=== PATIENT | female | born 1965 | race Caucasian/White ===

== ENCOUNTER 2017-12-17 18:33 | Inpatient (IN) | payer MEDICARE, SELFPAY ==
[2017-12-17 18:35] VITALS: BP 138/90; PULSE 121; RESP 20; TEMP 36.5; O2SAT 92; BMI 40.3
[2017-12-17 19:15] VITALS: O2SAT 94
--- NOTE | 2017-12-17 19:15 | EKG12_ITS ---
Test Reason : Blood Pressure : / mmHG Vent. Rate : 122 BPM Atrial Rate : 122 BPM P-R Int : 150 ms QRS Dur : 078 ms QT Int : 316 ms P-R-T Axes : 036 -08 016 degrees QTc Int : 450 ms Sinus tachycardia Low voltage QRS (precordial leads) Inferior infarct , age undetermined, cannot be excluded Poor R wave progression Abnormal ECG Confirmed by DIETER SALGADO, NO ([id number]), primer expeditor and drier BULL KENNEDY ([id number]) on 12/23/2017 3:02:43 PM Referred By: SEMAJ Confirmed By:NO GARCIAS MD
--- NOTE | 2017-12-17 19:15 | RAD_ITS ---
STUDY: X-RAY CHEST REASON FOR EXAM: Female, 52 years old. Chest pain TECHNIQUE: Frontal view of the chest COMPARISON: None. FINDINGS: The lungs are clear. There are no pleural effusions. There is no pneumothorax. The heart is normal in size. The visualized osseous structures are within normal limits. RAD/Chest 1 View (Portable) IMPRESSION: No acute thoracic pathology. Electronically Signed: Brannon Thomas, at 19:30 EDT Tel , Service support ,
[2017-12-17 19:30] VITALS: BP 141/79; PULSE 122; RESP 20; O2SAT 94
[2017-12-17 19:36] LABS: Absolute Lymphocyte Count 1.67 X10^3/ul (0.83-4.51); Absolute Neutrophil Count 13.4 X10^3/uL (2.0-7.7); Basophil# 0.03 X10^3/uL; Basophil% 0.2 % (0-1); Eosinophil# 0.26 X10^3/uL; Eosinophils% 1.6 % (0-5); Hematocrit 39.7 % (37-47); Hemoglobin 12.8 g/dl (12.0-15.0); Lymphocyte # 1.67 X10^3/ul (4.0); Lymphocyte % 10.3 % (19-41); Mean Corp Hgb Conc 32.2 g/gl (32-36); Mean Corpuscular Hgb 24.7 pg (27.0-32.0); Mean Corpuscular Volume 76.6 fL (81-99); Mean Platelet Vol. 8.3 fl (6.2-12.0); Monocyte# 0.73 X10^3/uL; Monocyte% 4.5 % (0-10); Neutrophil # 13.41 X10^3/uL (2.7-7.7); Platelet Count 351 K/mm3 (150-450); RBC Distribution Width CV 16.3 % (11.6-14.6); RBC Distribution Width SD 44.4 fl (35.1-43.9); Red Blood Count 5.18 M/mm3 (4.2-5.4); White Blood Count 16.2 K/mm3 (4.4-11.0)
[2017-12-17 19:42] LABS: POSITIVE COUNT NO; POSITIVE DIFFERENTIAL NO; POSITIVE MORPHOLOGY NO
[2017-12-17 19:54] LABS: Anion Gap 11 (5-15); BUN 14 mg/dL (7-18); BUN/Creat Ratio 12.5 RATIO (10-20); Calcium,Total 9.4 mg/dL (8.5-10.1); Chloride 97 mmol/L (98-107); Creatinine, Serum 1.12 mg/dL (0.55-1.02); EST Glomerular Filtration Rate 55 mL/min (>60); Est Glom Filt Rate - Afr Amer 66 mL/min (>60); Estimated Creatinine Clearance 51.89 ml/min; Glucose 272 mg/dL (74-106); Potassium 4.2 mmol/L (3.5-5.1); Sodium Level 130 mmol/L (136-145)
[2017-12-17 20:06] LABS: D-Dimer Quantitative (DVT/PE) 10.17 FEU/ug/m (0.27-0.49)
--- NOTE | 2017-12-17 20:07 | ED.RN ---
lab called with critical lab results. D dimer 04.21. Dr. Alba made aware. No new orders at this time. Primary nurse made aware.
--- NOTE | 2017-12-17 20:13 | CT_ITS ---
STUDY: CTA CHEST REASON FOR EXAM: Female, 52 years old. Dizziness, elevated d-dimer RADIATION DOSAGE (If Supplied By Facility): CTDIvol = ( 16.66 ) mGy, DLP = ( 636.68 ) mGycm TECHNIQUE: The examination was performed with the intravenous administration of 100 ml of Isovue 370 contrast material. Post-processing of the angiographic images was performed, with multiplanar reformation and 3D reconstruction. Individualized dose optimization techniques were used for this CT. COMPARISON: None. FINDINGS: There are filling defects of the main pulmonary artery and right and left pulmonary arteries with saddle embolus. Multiple filled defect isn't noted of the bilateral peripheral pulmonary arteries. There is compatible with significant pulmonary embolism. Normal thoracic aorta and visualized great vessels. There is no demonstrated aortic dissection. Normal heart and pericardium. Normal mediastinum. Normal hilar regions. Normal visualized trachea and bronchi. The lungs are well expanded. Normal pulmonary parenchyma. Normal pleura. Normal chest wall structures. Normal osseous structures. Small hiatal hernia. CT/CTA Chest W/WO Contrast IMPRESSION: Extensive bilateral pulmonary embolism. N.B. : The above information has been verbally conveyed by José Miguel Katz DO to Dr. Patricio Alba, Referring Physician, on 12/17/2017 22:01:34 (ET). Electronically Signed: José Miguel Katz DO at 21:51 EDT Tel [phone], Service support , N.B. : The above information has been verbally conveyed by José Miguel Katz DO to Dr. Patricio Alba, Referring Physician, on 12/17/2017 22:01:34 (ET).
[2017-12-17 20:30] VITALS: BP 138/78; PULSE 123; RESP 20; O2SAT 98
--- NOTE | 2017-12-17 22:17 | ED.VISSUMM ---
- ER Visit Summary Date of Service: 12/17/17 Chief Complaint: Dizziness and shortness of breath History of Present Illness: The patient is a 52 F history of cxx-dhavtxr-tdimxawtk diabetes and vertigo. Patient states she has had 2 dizzy spells today around 5 PM. She said the room was spinning she felt tired. She thought it was of vertigo she took to Antivert specific really made much of a difference. She said when she bent over she felt short of breath. She denies any chest pain. She denies any hemoptysis. She denies any history of DVT or PE. She denies any recent travel, surgery, mobilization. She is not on any control pills. She denies any cardiac history. Physical Examination: Well-appearing middle-age female. Vital signs are stable her pulse ox is borderline low at 92% with a heart rate of 121. She is in no distress. H EENT exam unremarkable. Neck nontender no JVD. Lungs clear to auscultation bilaterally. Heart tachycardic rate about 120s no murmur. Abdomen is soft and nontender. Normal bowel sounds no peritoneal signs. She is moving all 4 extremities. Calves are nontender without edema or cords. Neurologically she is awake and alert without focal motor deficits. Test Results: White count elevated 16,000 H&H 12 and 39. Electrolytes show sodium 130. Gap of 11 normal BUN and creatinine. Troponin is slightly elevated 0.113 d-dimer is elevated 10.1. CTA of the chest shows multiple bilateral large pulmonary emboli with saddle emboli. EKG shows a sinus tachycardia rate of 122 with a S1 every 3 and T3. Emergency Department Course and Treatment: In presents with atypical dizziness does not appear to be vertigo on exam. She also has tachycardia with borderline hypoxia. Treatment Plan: Patient's workup is consistent with acute bilateral pulmonary emboli. She will be started on p.o. Xarelto and admitted to the hospital. 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 Disposition: Admission Impression: Acute bilateral pulmonary emboli with saddle embolus This note was generated with [employer] dictation software. It may contain incorrect words, spelling, and punctuation that were not noted in review of the chart prior to signing ED Disposition - Plan for ED Patient: Chief Complaint: Dizziness Referrals: Michele Kaur MD [Primary Care Provider] -
--- NOTE | 2017-12-17 22:21 | ED.DCSUM_ITS ---
- ER Visit Summary Date of Service: 12/17/17 Chief Complaint: Dizziness and shortness of breath History of Present Illness: The patient is a 52 F history of non-insulin- dependent diabetes and vertigo. Patient states she has had 2 dizzy spells today around 5 PM. She said the room was spinning she felt tired. She thought it was of vertigo she took to Antivert specific really made much of a difference. She said when she bent over she felt short of breath. She denies any chest pain. She denies any hemoptysis. She denies any history of DVT or PE. She denies any recent travel, surgery, mobilization. She is not on any control pills. She denies any cardiac history. Physical Examination: Well-appearing middle-age female. Vital signs are stable her pulse ox is borderline low at 92% with a heart rate of 121. She is in no distress. H EENT exam unremarkable. Neck nontender no JVD. Lungs clear to auscultation bilaterally. Heart tachycardic rate about 120s no murmur. Abdomen is soft and nontender. Normal bowel sounds no peritoneal signs. She is moving all 4 extremities. Calves are nontender without edema or cords. Neurologically she is awake and alert without focal motor deficits. Test Results: White count elevated 16,000 H&H 12 and 39. Electrolytes show sodium 130. Gap of 11 normal BUN and creatinine. Troponin is slightly elevated 0.113 d-dimer is elevated 10.1. CTA of the chest shows multiple bilateral large pulmonary emboli with saddle emboli. EKG shows a sinus tachycardia rate of 122 with a S1 every 3 and T3. Emergency Department Course and Treatment: In presents with atypical dizziness does not appear to be vertigo on exam. She also has tachycardia with borderline hypoxia. Treatment Plan: Patient's workup is consistent with acute bilateral pulmonary emboli. She will be started on p.o. Xarelto and admitted to the hospital. 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 Disposition: Admission Impression: Acute bilateral pulmonary emboli with saddle embolus This note was generated with [employer] dictation software. It may contain incorrect words, spelling, and punctuation that were not noted in review of the chart prior to signing ED Disposition - Plan for ED Patient: Chief Complaint: Dizziness Referrals: Michele Kaur MD [Primary Care Provider] -
[2017-12-17] MEDS: Rivaroxaban 15 MG Tablet PO (22:34)
[2017-12-17 22:35] VITALS: BP 142/100; PULSE 124; RESP 18; O2SAT 97
--- NOTE | 2017-12-17 22:40 | PCM.HP.STD ---
Problem List (1) Pulmonary embolism Status: Acute (2) Tachycardia Status: Acute (3) NSTEMI (non-ST elevated myocardial infarction) Status: Acute History of Present Illness Date of Admission: 12/17/17 Chief Complaint: shortness of breath The patient is a 52 year old F presents with acute shortness of breath. Difficult to obtain history from patient given that she goes on tangents and is occupied with looking at her phone. She had denied any recent travel nor immobilization. But the patient presented to the emergency room as patient was stating that she is feeling dizzy and took some of her Antivert. It was noted that she was tachycardic and a d-dimer was ordered and it was greater than 10. A CTA confirmed bilateral pulmonary emboli. Patient has been started on Xarelto. Patient denies history of venous thromboembolic disease. [] Past Medical History Medical History: Medical History (Last Updated 12/17/17 @ 22:42 by Greg Walker DO) DM2 (diabetes mellitus, type 2) E11.9 Vertigo R42 Allergies amoxicillin Adverse Reaction (Verified 12/17/17 18:34) Other metronidazole [From Flagyl] Adverse Reaction (Verified 12/17/17 18:34) Other Home Medications: Ambulatory Orders Medication Instructions Recorded Gabapentin [Neurontin] 100 mg PO TID 12/17/17 Glimepiride [Amaryl] 4 mg PO DAILY 12/17/17 Meclizine HCl 25 mg PO DAILY PRN 12/17/17 Meloxicam 15 mg PO PRN PRN 12/17/17 Metformin HCl 1,000 mg PO BID 12/17/17 Omeprazole [Prilosec] 20 mg PO DAILY 12/17/17 Zolpidem Tartrate 10 mg PO DAILY 12/17/17 Smoking Status: Never smoker Review of Systems Comment: Unable to obtain an adequate social history, family history and review of systems as patient is preoccupied with using her phone and going on for an unrelated tangents. VTE Information - Inpt Only VTE Present on Admission: Yes Patient Problems: Active and Suspected Problems Pulmonary embolism (Acute) Tachycardia (Acute) NSTEMI (non-ST elevated myocardial infarction) (Acute) - Physical Exam General: Alert, No apparent distress HEENT: Atraumatic, Normocephalic Oral: Moist Mucosa, No Gingival or Mucosal Lesions/ Ulcerations Neck: No Nodes, Thyroid Normal Size and Texture Lungs: Clear to auscultation, Normal air movement, No rhonchi, No wheeze Cardiovascular: Normal S1, Normal S2, Tachycardic Abdomen: Bowel Sounds Present, Soft, Non Tender, Non-Distended, No Hepato-splenomegaly Extremities: Edema - Left calf edema, - - Left calf tenderness Skin: No rashes, No breakdown Musculoskeletal: No Tenderness to Palpation of Joints or Extremities, No Muscle Wasting Neurological: Muscle tone normal, Sensory exam intact to light touch and pain Psych/Mental Status: Normal Affect, Appropriate Vital Signs Temp Pulse Resp BP Pulse Ox 36.5 C L 124 H 18 142/100 H 97 12/17/17 18:35 12/17/17 22:35 12/17/17 22:35 12/17/17 22:35 12/17/17 22:35 Oxygen Flow Rate (L/min) 2 Oxygen Delivery Method Nasal Cannula Weight: 106.594 kg Body Mass Index (BMI) 40.3 Laboratory Tests Past 24 Hrs 12/17/17 12/17/17 12/17/17 19:23 19:23 19:23 WBC 16.2 H RBC 5.18 Hgb 12.8 Hct 39.7 MCV 76.6 L MCH 24.7 L MCHC 32.2 RDW 16.3 H RDW Differential 44.4 H Plt Count 351 MPV 8.3 Immature Gran % (Auto) 0.400 Neut % (Auto) 83.0 H Lymph % (Auto) 10.3 L [place] % (Auto) 4.5 Eos % (Auto) 1.6 Baso % (Auto) 0.2 Absolute Neuts (auto) 13.4 H Absolute Lymphs (auto) 1.67 Total Counted Not Reportable D-Dimer Quant (PE/DVT) 10.17 H* Sodium 130 L Potassium 4.2 Chloride 97 L Carbon Dioxide 22.0 Anion Gap 11 BUN 14 Creatinine 1.12 H Estim Creat Clear Calc 51.89 Est GFR (MDRD) Af Amer 66 Est GFR (MDRD) Non-Af 55 L BUN/Creatinine Ratio 12.5 Glucose 272 H Calcium 9.4 Troponin I 0.113 H Clinical Impression(s) from Imaging Studies Chest X-Ray 12/17/17 19:15 IMPRESSION: No acute thoracic pathology. Electronically Signed: Brannon Thomas, at 19:30 EDT Tel , Service support , Chest CTA 12/17/17 20:13 IMPRESSION: Extensive bilateral pulmonary embolism. N.B. : The above information has been verbally conveyed by José Miguel Katz DO to Dr. Patricio Alba, Referring Physician, on 12/17/2017 22:01:34 (ET). Electronically Signed: José Miguel Katz DO at 21:51 EDT Tel [phone], Service support , N.B. : The above information has been verbally conveyed by José Miguel Katz DO to Dr. Patricio Alba, Referring Physician, on 12/17/2017 22:01:34 (ET). Assessment/Plan All Active Problems Pulmonary embolism (Acute) Tachycardia (Acute) NSTEMI (non-ST elevated myocardial infarction) (Acute) 1. Bilateral pulmonary emboli Patient also with a saddle embolus Patient is being started on Xarelto and will continue with that. As this appears to be an unprovoked blood clot with a saddle embolus patient is looking at lifelong anticoagulation. Patient is otherwise hemodynamically stable other than her tachycardia. Patient is not a candidate for TPA. Will need to have case management assist in regards to seen the Xarelto can be covered for the patient Patient will require an ambulatory pulse ox prior to discharge. 2. Non-STEMI I suspect type II given the extensive nature of the pulmonary emboli Troponin was slightly elevated at 0.113. Will cycle troponins Check an echocardiogram Primarily treat the underlying process. 3. Tachycardia Secondary to the pulmonary emboli Will have as needed IV metoprolol for sustained heart rate greater than 130 Code Visit Inpatient E&M: 18174 Init Hosp L3
--- NOTE | 2017-12-17 22:48 | HP.PCM_ITS ---
Problem List (1) Pulmonary embolism Status: Acute (2) Tachycardia Status: Acute (3) NSTEMI (non-ST elevated myocardial infarction) Status: Acute History of Present Illness Date of Admission: 12/17/17 Chief Complaint: shortness of breath The patient is a 52 year old F presents with acute shortness of breath. Difficult to obtain history from patient given that she goes on tangents and is occupied with looking at her phone. She had denied any recent travel nor immobilization. But the patient presented to the emergency room as patient was stating that she is feeling dizzy and took some of her Antivert. It was noted that she was tachycardic and a d-dimer was ordered and it was greater than 10. A CTA confirmed bilateral pulmonary emboli. Patient has been started on Xarelto. Patient denies history of venous thromboembolic disease. [] Past Medical History Medical History: Medical History (Last Updated 12/17/17 @ 22:42 by Greg Walker DO) DM2 (diabetes mellitus, type 2) E11.9 Vertigo R42 Allergies amoxicillin Adverse Reaction (Verified 12/17/17 18:34) Other metronidazole [From Flagyl] Adverse Reaction (Verified 12/17/17 18:34) Other Home Medications: Ambulatory Orders Medication Instructions Recorded Gabapentin [Neurontin] 100 mg PO TID 12/17/17 Glimepiride [Amaryl] 4 mg PO DAILY 12/17/17 Meclizine HCl 25 mg PO DAILY PRN 12/17/17 Meloxicam 15 mg PO PRN PRN 12/17/17 Metformin HCl 1,000 mg PO BID 12/17/17 Omeprazole [Prilosec] 20 mg PO DAILY 12/17/17 Zolpidem Tartrate 10 mg PO DAILY 12/17/17 Smoking Status: Never smoker Review of Systems Comment: Unable to obtain an adequate social history, family history and review of systems as patient is preoccupied with using her phone and going on for an unrelated tangents. VTE Information - Inpt Only VTE Present on Admission: Yes Patient Problems: Active and Suspected Problems Pulmonary embolism (Acute) Tachycardia (Acute) NSTEMI (non-ST elevated myocardial infarction) (Acute) - Physical Exam General: Alert, No apparent distress HEENT: Atraumatic, Normocephalic Oral: Moist Mucosa, No Gingival or Mucosal Lesions/ Ulcerations Neck: No Nodes, Thyroid Normal Size and Texture Lungs: Clear to auscultation, Normal air movement, No rhonchi, No wheeze Cardiovascular: Normal S1, Normal S2, Tachycardic Abdomen: Bowel Sounds Present, Soft, Non Tender, Non-Distended, No Hepato- splenomegaly Extremities: Edema - Left calf edema, - - Left calf tenderness Skin: No rashes, No breakdown Musculoskeletal: No Tenderness to Palpation of Joints or Extremities, No Muscle Wasting Neurological: Muscle tone normal, Sensory exam intact to light touch and pain Psych/Mental Status: Normal Affect, Appropriate Vital Signs Temp Pulse Resp BP Pulse Ox 36.5 C L 124 H 18 142/100 H 97 12/17/17 18:35 12/17/17 22:35 12/17/17 22:35 12/17/17 22:35 12/17/17 22:35 Oxygen Flow Rate (L/min) 2 Oxygen Delivery Method Nasal Cannula Weight: 106.594 kg Body Mass Index (BMI) 40.3 Laboratory Tests Past 24 Hrs 12/17/17 12/17/17 12/17/17 19:23 19:23 19:23 WBC 16.2 H RBC 5.18 Hgb 12.8 Hct 39.7 MCV 76.6 L MCH 24.7 L MCHC 32.2 RDW 16.3 H RDW Differential 44.4 H Plt Count 351 MPV 8.3 Immature Gran % (Auto) 0.400 Neut % (Auto) 83.0 H Lymph % (Auto) 10.3 L [place] % (Auto) 4.5 Eos % (Auto) 1.6 Baso % (Auto) 0.2 Absolute Neuts (auto) 13.4 H Absolute Lymphs (auto) 1.67 Total Counted Not Reportable D-Dimer Quant (PE/DVT) 10.17 H* Sodium 130 L Potassium 4.2 Chloride 97 L Carbon Dioxide 22.0 Anion Gap 11 BUN 14 Creatinine 1.12 H Estim Creat Clear Calc 51.89 Est GFR (MDRD) Af Amer 66 Est GFR (MDRD) Non-Af 55 L BUN/Creatinine Ratio 12.5 Glucose 272 H Calcium 9.4 Troponin I 0.113 H Clinical Impression(s) from Imaging Studies Chest X-Ray 12/17/17 19:15 IMPRESSION: No acute thoracic pathology. Electronically Signed: Brannon Thomas, at 19:30 EDT Tel , Service support , Chest CTA 12/17/17 20:13 IMPRESSION: Extensive bilateral pulmonary embolism. N.B. : The above information has been verbally conveyed by José Miguel Katz DO to Dr. Patricio Alba, Referring Physician, on 12/17/2017 22:01:34 (ET). Electronically Signed: José Miguel Katz DO at 21:51 EDT Tel [phone], Service support , N.B. : The above information has been verbally conveyed by José Miguel Katz DO to Dr. Patricio Alba, Referring Physician, on 12/17/2017 22:01:34 (ET). Assessment/Plan All Active Problems Pulmonary embolism (Acute) Tachycardia (Acute) NSTEMI (non-ST elevated myocardial infarction) (Acute) 1. Bilateral pulmonary emboli * Patient also with a saddle embolus * Patient is being started on Xarelto and will continue with that. As this appears to be an unprovoked blood clot with a saddle embolus patient is looking at lifelong anticoagulation. * Patient is otherwise hemodynamically stable other than her tachycardia. Patient is not a candidate for TPA. * Will need to have case management assist in regards to seen the Xarelto can be covered for the patient * Patient will require an ambulatory pulse ox prior to discharge. 2. Non-STEMI * I suspect type II given the extensive nature of the pulmonary emboli * Troponin was slightly elevated at 0.113. * Will cycle troponins * Check an echocardiogram * Primarily treat the underlying process. 3. Tachycardia * Secondary to the pulmonary emboli * Will have as needed IV metoprolol for sustained heart rate greater than 130 Code Visit Inpatient E&M: 40489 Init Hosp L3
--- NOTE | 2017-12-17 23:22 | ECHOD_ITS ---
Reason For Study: PE Procedure This was a 2D Doppler, Color Flow transthoracic echocardiogram. The exam was of fair technical quality due to body habitus. The study was technically difficult. Exam performed portable in patient room. Left Ventricle Normal LV size. Moderate concentric left ventricular hypertrophy. Left ventricular systolic function is normal. The estimated ejection fraction is 70 %. Transmitral doppler flow suggestive of impaired relaxation of left ventricle. No regional wall motion abnormalities noted. Right Ventricle Severely dilated right ventricle. Severe global right ventricular systolic dysfunction. Atria Normal left atrium. The right atrium is mildly enlarged. No doppler evidence for ASD. Mitral Valve There is no mitral annular calcification. Normal mitral valve. Trivial mitral valve insufficiency. Tricuspid Valve Normal tricuspid valve. Mild tricuspid valve insufficiency. Right ventricular systolic pressure estimated to be 42 mmHg. Aortic Valve Trisinus/trileaflet aortic valve. Normal aortic valve. Pulmonic Valve The pulmonic valve is not well visualized. Trivial pulmonic valve insufficiency. Great Vessels Normal sized aortic root. Pericardium/Pleural No pericardial effusion. MMode/2D Measurements & Calculations LVIDd: 2.9 cm IVSd: 1.5 cm Ao root diam: 3.3 cm LVIDs: 1.9 cm LVPWd: 1.4 cm RVDd: 5.9 cm FS: 34.7 % LAV(MOD-bp): 20.0 ml LA A4 area: 9.6 cm2 RA A4 area: 17.4 cm2 LAV(MOD-bp) Indexed: 9.4 ml/m2 LAV(MOD-sp2): 20.5 ml LAV(MOD-sp4): 16.5 ml Doppler Measurements & Calculations MV E max jaleel: 69.5 cm/sec Lat Peak E' Jaleel: 7.4 cm/sec Med Peak E' Jaleel: 7.4 cm/sec MV A max jaleel: 86.5 cm/sec E/E' lat: 9.4 E/E' med: 9.4 MV E/A: 0.80 Ao V2 max: 148.2 cm/sec LV V1 max: 84.1 cm/sec PA V2 max: 45.2 cm/sec Ao max P.8 mmHg LV V1 max P.8 mmHg Ao V2 mean: 103.8 cm/sec Ao mean P.7 mmHg Ao V2 VTI: 22.6 cm TR max jaleel: 292.3 cm/sec TR max P.2 mmHg Interpretation Summary The study was technically difficult. Left ventricular systolic function is normal. The estimated ejection fraction is 70 %. Moderate concentric left ventricular hypertrophy. Severely dilated right ventricle. Severe global right ventricular systolic dysfunction. The right atrium is mildly enlarged. Trivial mitral valve insufficiency. Mild tricuspid valve insufficiency. Trivial pulmonic valve insufficiency. Right ventricular systolic pressure estimated to be 42 mmHg. Transmitral doppler flow suggestive of impaired relaxation of left ventricle Ordering Physician: Greg Walker Referring Physician: MD Michele Kaur Performed By: Chuyita Caballero, RDCS, RVT
[2017-12-17 23:23] VITALS: PULSE 114
[2017-12-17 23:34] VITALS: BMI 41.3
[2017-12-17] MEDS: 0.9% Normal Saline 1,000 ML 150 ML IV (23:50)
[2017-12-18] VITALS (14 sets, daily range): BP systolic 113–132; BP diastolic 58–86; PULSE 93–116; RESP 16–18; TEMP 36.6–37.2; O2SAT 93–98
[2017-12-18] MEDS: Zolpidem Tartrate 5 MG Tablet PO ×2 (00:38→23:34)
--- NOTE | 2017-12-18 02:31 | NURSING ---
Denilson sanchez taking over pt care at this time.
[2017-12-18 02:53] LABS: Hematocrit 36.3 % (37-47); Hemoglobin 11.9 g/dl (12.0-15.0); Mean Corp Hgb Conc 32.8 g/gl (32-36); Mean Corpuscular Volume 76.3 fL (81-99); Mean Platelet Vol. 8.2 fl (6.2-12.0); Platelet Count 373 K/mm3 (150-450); RBC Distribution Width CV 16.5 % (11.6-14.6); RBC Distribution Width SD 43.9 fl (35.1-43.9); Red Blood Count 4.76 M/mm3 (4.2-5.4); White Blood Count 16.5 K/mm3 (4.4-11.0)
[2017-12-18 02:55] LABS: Scan Indicated on CBC? Y/N NO
[2017-12-18 03:12] LABS: Anion Gap 11 (5-15); BUN 11 mg/dL (7-18); BUN/Creat Ratio 11.6 RATIO (10-20); Calcium,Total 8.7 mg/dL (8.5-10.1); Chloride 97 mmol/L (98-107); Creatinine, Serum 0.95 mg/dL (0.55-1.02); EST Glomerular Filtration Rate 66 mL/min (>60); Est Glom Filt Rate - Afr Amer 80 mL/min (>60); Estimated Creatinine Clearance 61.18 ml/min; Glucose 221 mg/dL (74-106); Potassium 3.9 mmol/L (3.5-5.1); Sodium Level 130 mmol/L (136-145)
[2017-12-18] MEDS: Acetaminophen 325 MG Tablet 650 MG PO (04:06)
[2017-12-18 07:10] LABS: Bedside Glucose 250 mg/dL (70-110)
[2017-12-18] MEDS: Rivaroxaban 15 MG Tablet PO ×2 (07:56→16:35)
[2017-12-18] MEDS: Gabapentin 100 MG Capsule PO ×3 (07:56→16:36)
[2017-12-18] MEDS: Glimepiride 4 MG Tablet PO (07:56)
--- NOTE | 2017-12-18 10:30 | VDLE_ITS ---
Reason For Study: PULM EMBOLISM RIGHT LEFT GSV is normal. GSV is normal. CFV is compressible, spontaneous, phasic, CFV is compressible, spontaneous, phasic, competent and demonstrates normal competent, and demonstrates normal augmentation. augmentation. FV is compressible, spontaneous, phasic, Left Distal FV is DILATED and competent and demonstrates normal NONCOMPRESSIBLE. augmentation. Left POP V is DILATED and NONCOMPRESSIBLE. POP V is compressible, spontaneous, phasic, Left P/T TRUNK is DILATED and competent and demonstrates normal NONCOMPRESSIBLE. augmentation. Left proximal PTV is DILATED and T/P Trunk is compressible. NONCOMPRESSIBLE. PTV is compressible. Left proximal CHESTER V is DILATED and RT PerV is compressible. NONCOMPRESSIBLE. Procedure Exam performed portable in patient room. A preliminary report was called and/or faxed to PCU. Interpretation Summary Acute deep vein thrombosis is noted in the left femoral vein. Acute deep vein thrombosis is noted in the left popliteal vein. Acute deep vein thrombosis is noted in the left tibio-peroneal trunk. Acute deep vein thrombosis is noted in the left posterior tibial vein. Acute deep vein thrombosis is noted in the left peroneal vein. The left common femoral vein is patent, compressible, and competent. Deep veins of the right lower extremity are patent and compressible segmentally. There is no evidence of right lower extremity deep vein thrombosis. Valvular competence appears intact within the proximal deep venous system on the right . The greater saphenous veins appear bilaterally patent and compressible segmentally. Ordering Physician: Hiram Gray Referring Physician: SHAYE MCKINNEY Performed By: Simin Gonzalez, RUPALI, RVT
[2017-12-18] MEDS: Pantoprazole Sodium 20 MG Tablet PO (10:33)
--- NOTE | 2017-12-18 10:52 | CASEMGMT ---
Face to Face with patient for initial transition planning/care coordination assessment. [place] introduced self and role at [facility], pt voices understanding and consents to assessment at this time. Pt is lying on left side in bed in no distress at this time. Pt is A/O x4 at this time and answers all questions appropriately at this time. Care providers, pharmacy, and demographics verified. See attached link. Pt voices no further concerns/needs at this time. Advised pt to ask for CM if any further questions/concerns/needs arise, voices understanding. CM to follow for home oxygen and E.Sintia SW to room with financial resources for pt. PLAN: [place]
--- NOTE | 2017-12-18 11:51 | CASEMGMT ---
Per Juan DORAN, pt will be sent home on Xarelto and scripts e-scribed to [facility] at this time. Call to pharmacy and per pharmacist, Xareelto 15mg twice daily for 30 days will be $5.40 and Xarelto 20mg daily will be 'around $7-8 Pharmacist states that he cannot run this one through insurance at this time. Trent SW aware of pt financial concerns at this time and is providing resources for pt. Jameson GODOY CM
[2017-12-18 11:55] LABS: Bedside Glucose 284 mg/dL (70-110)
--- NOTE | 2017-12-18 13:14 | PCM.CONS.GEN ---
Problem List (1) Pulmonary embolism Status: Acute (2) Tachycardia Status: Acute (3) NSTEMI (non-ST elevated myocardial infarction) Status: Acute (4) Type II diabetes mellitus Status: Chronic Reason for Consult Date of Consultation: 12/18/17 Reason for Consultation: PE History of Present Illness: The patient is a 52 year old F with past medical history as below, presented to the ED on 12/17/17 with complaints of dizziness and shortness of breath for 1 day. She had a few dizzy spells prior to presentation and felt like she was going to fall over. She has a history of vertigo and took Antivert with no improvement. Her shortness of breath worsened to the point where she could not exert herself at all and had midsternal and left-sided chest pain. Patient reports she has had recent left lower leg tightness, she did go to her PCP for this and had an x-ray. She has not had any sharp pain to her calf, erythema, or increased warmth. She denies any recent prolonged trips/car rides, no history of blood clots or clotting disorders, no family history of the same. She has not had any changes in her medications recently. No personal history of cancer. Patient reports she is very active and walks her dogs 3 times a day. Denies any previous lung disease, no COPD or asthma. She has been a lifelong non-smoker. She did use alcohol and marijuana when she was younger, however it has been at least 20 years. Initial vital signs BP 130/90, pulse 121, RR 20, 97.7?F, and 92% on room air. Chest x-ray was normal. D-dimer showed elevation at 10.17, so obtained CT of the chest which showed extensive bilateral pulmonary embolism/saddle embolus. Small hiatal hernia. Blood work remarkable for a leukocytosis of 16,200, normal H&H and platelets. Chemistry remarkable for sodium of 130, chloride 97, normal BUN at 14 and creatinine 1.12. This was elevated to 72. Initial troponin 0 0.113, has trended up to 0.357. The patient was placed on 2 L of oxygen supplementation. She was transferred to the progressive care unit for further evaluation and management. Pulmonary was consulted. The patient's shortness of breath with exertion has significantly improved since arrival. She is maintaining appropriate saturations on 1-2 L of oxygen. She denies any dyspnea at rest. Denies any orthopnea, palpitations, or current chest pain. No current vertigo symptoms. Past Medical History Past Medical History (Chronic Problems): Chronic Problems (Last Updated 12/17/17 @ 22:42 by Greg Walker DO) Type II diabetes mellitus (Chronic) Medical History: Medical History (Last Updated 12/17/17 @ 22:42 by Greg Walker DO) DM2 (diabetes mellitus, type 2) E11.9 Vertigo R42 Allergies amoxicillin Adverse Reaction (Verified 12/17/17 18:34) Other metronidazole [From Flagyl] Adverse Reaction (Verified 12/17/17 18:34) Other Home Medications: Ambulatory Orders Medication Instructions Recorded Gabapentin [Neurontin] 100 mg PO TID 12/17/17 Glimepiride [Amaryl] 4 mg PO DAILY 12/17/17 Meclizine HCl 25 mg PO DAILY PRN 12/17/17 Meloxicam 15 mg PO PRN PRN 12/17/17 Metformin HCl 1,000 mg PO BID 12/17/17 Omeprazole [Prilosec] 20 mg PO DAILY 12/17/17 Zolpidem Tartrate 10 mg PO DAILY 12/17/17 Aspirin [Aspirin, Baby] 81 mg PO DAILY 12/18/17 Rivaroxaban [Xarelto] 15 mg PO BIDCM #40 tab 12/18/17 Rivaroxaban [Xarelto] 20 mg PO DAILY #30 tab 12/18/17 Surgical History: - - no pertinent history Psychiatric History: No pertinent psych hx 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 Denies: Anorexia, Chills, Fever, Night Sweats, Malaise, Weakness, Weight Change Eyes: Reports: - - dizziness, room spinning (resolved) HEENT: Reports: Head Aches. Denies: Difficulty Hearing, Difficulty Swallowing, Nasal bleeding, Nasal Congestion, Post Nasal Drip, Sinus Congestion, Sinus Drainage, Sore Throat Cardiovascular: Reports: Chest Pain, Chest Tightness, Light Headedness. Denies: Edema, Orthopnea, Palpitations, Paroxysmal Noc. Dyspnea, Syncope Respiratory: Reports: Pleuritic Pain, Shortness of breath at rest - resolved, Shortness of breath upon exertion. Denies: Cough, Hemoptysis, Sputum production, Wheezing Gastrointestinal: Denies: Abdominal Pain, Constipation, Diarrhea, Dyspepsia, Hematemesis, Hematochezia, Nausea, Melena, Vomiting Genitourinary: Denies: Dysuria, Frequency, Hematuria, Hesitancy, Nocturia, Retention Musculoskeletal: Reports: Leg Pain - left leg tightness. Denies: Back Pain Skin: Denies: Rash, Wounds Neurological: Denies: Balance problems, Change in Speech, Confusion, Difficulty swallowing, Focal weakness, Tremor, Seizures Psychiatric: Reports: Anxiety, Depression Endocrine: Denies: Change in Body Habitus, Polydipsia, Polyuria Hematologic/ Lymphatic: Denies: Adenopathy, Anemia, Easy Bruising, Easy Bleeding, Hx of blood clot Patient Problems: Active and Suspected Problems (Last Updated 12/17/17 @ 22:42 by Greg Walker DO) Pulmonary embolism (Acute) Tachycardia (Acute) NSTEMI (non-ST elevated myocardial infarction) (Acute) Subjective: Patient was seen and examined. She is sitting up in bed in no acute distress. She is having difficulty staying on topic with conversation. She denies any current shortness of breath except with exertion, she is maintaining appropriate saturations on 2 L of oxygen supplementation. Objective: Clinical Impression(s) from Imaging Studies Chest X-Ray 12/17/17 19:15 IMPRESSION: No acute thoracic pathology. Electronically Signed: Brannon Thomas, at 19:30 EDT Tel , Service support , Chest CTA 12/17/17 20:13 IMPRESSION: Extensive bilateral pulmonary embolism. N.B. : The above information has been verbally conveyed by José Miguel Katz DO to Dr. Patricio Alba, Referring Physician, on 12/17/2017 22:01:34 (ET). Electronically Signed: José Miguel Katz DO at 21:51 EDT Tel [phone], Service support , N.B. : The above information has been verbally conveyed by José Miguel Katz DO to Dr. Patricio Alba, Referring Physician, on 12/17/2017 22:01:34 (ET). - Physical Exam General: Alert, Oriented x3, Cooperative, No apparent distress, Well developed, Well nourished, - - obese HEENT: Atraumatic, PERRLA, Normocephalic Oral: Moist Mucosa, No Gingival or Mucosal Lesions/ Ulcerations Neck: Supple, No JVD, No Nodes, Trachea Midline Lungs: No rhonchi, No wheeze, No rales, Diminished, - - Symmetric expansion, no dullness to percussion. Cardiovascular: Regular rate, Regular Rhythm, Normal S1, Normal S2, No murmurs, No rub noted, No Gallop Abdomen: Bowel Sounds Present, Soft, Non Tender, Non-Distended, Obese Extremities: No clubbing, No cyanosis, No edema, No Calf Tenderness, - - No erythema or increased warmth to lower extremities Skin: No rashes, No breakdown Musculoskeletal: No Tenderness to Palpation of Joints or Extremities Lymphatic: No Cervical, Supraclavicular, or Inguinal Adenopathy Neurological: Cranial nerves II-XII grossly intact, Neuro grossly intact, Motor Exam 5/5 strength throughout Psych/Mental Status: Alert and oriented to time, place, person, mood and affect Vital Signs Temp Pulse Resp BP Pulse Ox 98.2 F 93 18 121/72 H 96 12/18/17 11:47 12/18/17 11:47 12/18/17 11:47 12/18/17 11:47 12/18/17 11:47 Oxygen Flow Rate (L/min) 2 Oxygen Delivery Method Nasal Cannula Weight: 242 lb 1.081 oz Body Mass Index (BMI) 41.3 Intake and Output for Last 24 Hours 12/16/17 12/17/17 12/18/17 23:59 23:59 23:59 Intake Total 120 / 120 3047 / 3047 Balance 120 / 120 3047 / 3047 Laboratory Tests Past 24 Hrs 12/17/17 12/18/17 12/18/17 23:54 02:37 02:37 WBC 16.5 H RBC 4.76 Hgb 11.9 L Hct 36.3 L MCV 76.3 L MCH 25.0 L MCHC 32.8 RDW 16.5 H RDW Differential 43.9 Plt Count 373 MPV 8.2 Sodium Potassium Chloride Carbon Dioxide Anion Gap BUN Creatinine Estim Creat Clear Calc Est GFR (MDRD) Af Amer Est GFR (MDRD) Non-Af BUN/Creatinine Ratio Glucose Calcium Troponin I 0.306 H 0.357 H 12/18/17 02:37 WBC RBC Hgb Hct MCV MCH MCHC RDW RDW Differential Plt Count MPV Sodium 130 L Potassium 3.9 Chloride 97 L Carbon Dioxide 22.0 Anion Gap 11 BUN 11 Creatinine 0.95 Estim Creat Clear Calc 61.18 Est GFR (MDRD) Af Amer 80 Est GFR (MDRD) Non-Af 66 BUN/Creatinine Ratio 11.6 Glucose 221 H Calcium 8.7 Troponin I POC Glucose 12/18/17 12/18/17 11:46 07:03 POC Glucose 284 H 250 H Assessment/Plan All Active Problems (Last Updated 12/17/17 @ 22:42 by Greg Walker DO) Pulmonary embolism (Acute) Tachycardia (Acute) NSTEMI (non-ST elevated myocardial infarction) (Acute) RECOMMENDATIONS 1. Wean oxygen supplementation to keep saturations 90% or above 2. Encourage incentive spirometer 3. Increase activity as tolerated 4. Patient will require repeat echo in approximately 3 months to reassess heart strain/pulmonary artery pressures 5. Dietitian consult for diabetes, check A1c IMPRESSIONS 1. Bilateral pulmonary embolus Extensive bilateral saddle emboli. No family or patient history of PE. No history of clotting disorders. Unprovoked. Patient was placed on Xarelto, she does have some financial concerns but case management following. Echocardiogram showed a severely dilated right ventricle and severe global RV systolic dysfunction, mildly enlarged right atrium, no significant valve abnormalities, RVSP estimated 42 mmHg, impaired relaxation LV. Wean oxygen supplementation to keep saturations greater than 90%. Increase activity as tolerated. No need for bronchodilators at this time. Stressed the importance of compliance with her medications upon discharge, as well as maintain follow-up appointments. She can follow-up in the pulmonary clinic a couple of weeks. 2. Troponin elevation Likely demand ischemia in the setting of extensive PEs. 3. Type 2 diabetes mellitus/obesity Complicates care, management, recovery, and prognosis. Continue home medications as indicated. Continue to hold metformin given contrast for CT. Discussed obtaining better control of the patient's diabetes, would recommend dietitian consult. Check an A1c. Thank you for the opportunity to participate in this patient's care, please not hesitate contact us with any further questions or concerns. This note was generated with [employer] software. It may contain incorrect words, spelling, and punctuation that were not noted in checking the note before signing.
--- NOTE | 2017-12-18 13:35 | CON.PCM_ITS ---
Problem List (1) Pulmonary embolism Status: Acute (2) Tachycardia Status: Acute (3) NSTEMI (non-ST elevated myocardial infarction) Status: Acute (4) Type II diabetes mellitus Status: Chronic Reason for Consult Date of Consultation: 12/18/17 Reason for Consultation: PE History of Present Illness: The patient is a 52 year old F with past medical history as below, presented to the ED on 12/17/17 with complaints of dizziness and shortness of breath for 1 day. She had a few dizzy spells prior to presentation and felt like she was going to fall over. She has a history of vertigo and took Antivert with no improvement. Her shortness of breath worsened to the point where she could not exert herself at all and had midsternal and left-sided chest pain. Patient reports she has had recent left lower leg tightness, she did go to her PCP for this and had an x-ray. She has not had any sharp pain to her calf, erythema , or increased warmth. She denies any recent prolonged trips/car rides, no history of blood clots or clotting disorders, no family history of the same. She has not had any changes in her medications recently. No personal history of cancer. Patient reports she is very active and walks her dogs 3 times a day. Denies any previous lung disease, no COPD or asthma. She has been a lifelong non-smoker. She did use alcohol and marijuana when she was younger, however it has been at least 20 years. Initial vital signs BP 130/90, pulse 121, RR 20, 97.7?F, and 92% on room air. Chest x-ray was normal. D-dimer showed elevation at 10.17, so obtained CT of the chest which showed extensive bilateral pulmonary embolism/saddle embolus. Small hiatal hernia. Blood work remarkable for a leukocytosis of 16,200, normal H&H and platelets. Chemistry remarkable for sodium of 130, chloride 97, normal BUN at 14 and creatinine 1.12. This was elevated to 72. Initial troponin 0 0.113, has trended up to 0.357. The patient was placed on 2 L of oxygen supplementation. She was transferred to the progressive care unit for further evaluation and management. Pulmonary was consulted. The patient's shortness of breath with exertion has significantly improved since arrival. She is maintaining appropriate saturations on 1-2 L of oxygen. She denies any dyspnea at rest. Denies any orthopnea, palpitations, or current chest pain. No current vertigo symptoms. Past Medical History Past Medical History (Chronic Problems): Chronic Problems (Last Updated 12/17/17 @ 22:42 by Gerg Walker DO) Type II diabetes mellitus (Chronic) Medical History: Medical History (Last Updated 12/17/17 @ 22:42 by Greg Walker DO) DM2 (diabetes mellitus, type 2) E11.9 Vertigo R42 Allergies amoxicillin Adverse Reaction (Verified 12/17/17 18:34) Other metronidazole [From Flagyl] Adverse Reaction (Verified 12/17/17 18:34) Other Home Medications: Ambulatory Orders Medication Instructions Recorded Gabapentin [Neurontin] 100 mg PO TID 12/17/17 Glimepiride [Amaryl] 4 mg PO DAILY 12/17/17 Meclizine HCl 25 mg PO DAILY PRN 12/17/17 Meloxicam 15 mg PO PRN PRN 12/17/17 Metformin HCl 1,000 mg PO BID 12/17/17 Omeprazole [Prilosec] 20 mg PO DAILY 12/17/17 Zolpidem Tartrate 10 mg PO DAILY 12/17/17 Aspirin [Aspirin, Baby] 81 mg PO DAILY 12/18/17 Rivaroxaban [Xarelto] 15 mg PO BIDCM #40 tab 12/18/17 Rivaroxaban [Xarelto] 20 mg PO DAILY #30 tab 12/18/17 Surgical History: - - no pertinent history Psychiatric History: 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 Denies: Anorexia, Chills, Fever, Night Sweats , Malaise, Weakness, Weight Change Eyes: Reports: - - dizziness, room spinning (resolved) HEENT: Reports: Head Aches. Denies: Difficulty Hearing, Difficulty Swallowing, Nasal bleeding, Nasal Congestion, Post Nasal Drip, Sinus Congestion, Sinus Drainage, Sore Throat Cardiovascular: Reports: Chest Pain, Chest Tightness, Light Headedness. Denies : Edema, Orthopnea, Palpitations, Paroxysmal Noc. Dyspnea, Syncope Respiratory: Reports: Pleuritic Pain, Shortness of breath at rest - resolved, Shortness of breath upon exertion. Denies: Cough, Hemoptysis, Sputum production , Wheezing Gastrointestinal: Denies: Abdominal Pain, Constipation, Diarrhea, Dyspepsia, Hematemesis, Hematochezia, Nausea, Melena, Vomiting Genitourinary: Denies: Dysuria, Frequency, Hematuria, Hesitancy, Nocturia, Retention Musculoskeletal: Reports: Leg Pain - left leg tightness. Denies: Back Pain Skin: Denies: Rash, Wounds Neurological: Denies: Balance problems, Change in Speech, Confusion, Difficulty swallowing, Focal weakness, Tremor, Seizures Psychiatric: Reports: Anxiety, Depression Endocrine: Denies: Change in Body Habitus, Polydipsia, Polyuria Hematologic/ Lymphatic: Denies: Adenopathy, Anemia, Easy Bruising, Easy Bleeding , Hx of blood clot Patient Problems: Active and Suspected Problems (Last Updated 12/17/17 @ 22:42 by Greg Walker DO ) Pulmonary embolism (Acute) Tachycardia (Acute) NSTEMI (non-ST elevated myocardial infarction) (Acute) Subjective: Patient was seen and examined. She is sitting up in bed in no acute distress. She is having difficulty staying on topic with conversation. She denies any current shortness of breath except with exertion, she is maintaining appropriate saturations on 2 L of oxygen supplementation. Objective: Clinical Impression(s) from Imaging Studies Chest X-Ray 12/17/17 19:15 IMPRESSION: No acute thoracic pathology. Electronically Signed: Brannon Thomas, at 19:30 EDT Tel , Service support , Chest CTA 12/17/17 20:13 IMPRESSION: Extensive bilateral pulmonary embolism. N.B. : The above information has been verbally conveyed by José Miguel Katz DO to Dr. Patricio Alba, Referring Physician, on 12/17/2017 22:01:34 (ET). Electronically Signed: José Miguel Katz DO at 21:51 EDT Tel [phone], Service support , N.B. : The above information has been verbally conveyed by José Miguel Katz DO to Dr. Patricio Alba, Referring Physician, on 12/17/2017 22:01:34 (ET). - Physical Exam General: Alert, Oriented x3, Cooperative, No apparent distress, Well developed, Well nourished, - - obese HEENT: Atraumatic, PERRLA, Normocephalic Oral: Moist Mucosa, No Gingival or Mucosal Lesions/ Ulcerations Neck: Supple, No JVD, No Nodes, Trachea Midline Lungs: No rhonchi, No wheeze, No rales, Diminished, - - Symmetric expansion, no dullness to percussion. Cardiovascular: Regular rate, Regular Rhythm, Normal S1, Normal S2, No murmurs, No rub noted, No Gallop Abdomen: Bowel Sounds Present, Soft, Non Tender, Non-Distended, Obese Extremities: No clubbing, No cyanosis, No edema, No Calf Tenderness, - - No erythema or increased warmth to lower extremities Skin: No rashes, No breakdown Musculoskeletal: No Tenderness to Palpation of Joints or Extremities Lymphatic: No Cervical, Supraclavicular, or Inguinal Adenopathy Neurological: Cranial nerves II-XII grossly intact, Neuro grossly intact, Motor Exam 5/5 strength throughout Psych/Mental Status: Alert and oriented to time, place, person, mood and affect Vital Signs Temp Pulse Resp BP Pulse Ox 98.2 F 93 18 121/72 H 96 12/18/17 11:47 12/18/17 11:47 12/18/17 11:47 12/18/17 11:47 12/18/17 11:47 Oxygen Flow Rate (L/min) 2 Oxygen Delivery Method Nasal Cannula Weight: 242 lb 1.081 oz Body Mass Index (BMI) 41.3 Intake and Output for Last 24 Hours 12/16/17 12/17/17 12/18/17 23:59 23:59 23:59 Intake Total 120 / 120 3047 / 3047 Balance 120 / 120 3047 / 3047 Laboratory Tests Past 24 Hrs 12/17/17 12/18/17 12/18/17 23:54 02:37 02:37 WBC 16.5 H RBC 4.76 Hgb 11.9 L Hct 36.3 L MCV 76.3 L MCH 25.0 L MCHC 32.8 RDW 16.5 H RDW Differential 43.9 Plt Count 373 MPV 8.2 Sodium Potassium Chloride Carbon Dioxide Anion Gap BUN Creatinine Estim Creat Clear Calc Est GFR (MDRD) Af Amer Est GFR (MDRD) Non-Af BUN/Creatinine Ratio Glucose Calcium Troponin I 0.306 H 0.357 H 12/18/17 02:37 WBC RBC Hgb Hct MCV MCH MCHC RDW RDW Differential Plt Count MPV Sodium 130 L Potassium 3.9 Chloride 97 L Carbon Dioxide 22.0 Anion Gap 11 BUN 11 Creatinine 0.95 Estim Creat Clear Calc 61.18 Est GFR (MDRD) Af Amer 80 Est GFR (MDRD) Non-Af 66 BUN/Creatinine Ratio 11.6 Glucose 221 H Calcium 8.7 Troponin I POC Glucose 12/18/17 12/18/17 11:46 07:03 POC Glucose 284 H 250 H Assessment/Plan All Active Problems (Last Updated 12/17/17 @ 22:42 by Greg Walker DO) Pulmonary embolism (Acute) Tachycardia (Acute) NSTEMI (non-ST elevated myocardial infarction) (Acute) RECOMMENDATIONS 1. Wean oxygen supplementation to keep saturations 90% or above 2. Encourage incentive spirometer 3. Increase activity as tolerated 4. Patient will require repeat echo in approximately 3 months to reassess heart strain/pulmonary artery pressures 5. Dietitian consult for diabetes, check A1c IMPRESSIONS 1. Bilateral pulmonary embolus Extensive bilateral saddle emboli. No family or patient history of PE. No history of clotting disorders. Unprovoked. Patient was placed on Xarelto, she does have some financial concerns but case management following. Echocardiogram showed a severely dilated right ventricle and severe global RV systolic dysfunction, mildly enlarged right atrium, no significant valve abnormalities, RVSP estimated 42 mmHg, impaired relaxation LV. Wean oxygen supplementation to keep saturations greater than 90%. Increase activity as tolerated. No need for bronchodilators at this time. Stressed the importance of compliance with her medications upon discharge, as well as maintain follow- up appointments. She can follow-up in the pulmonary clinic a couple of weeks. 2. Troponin elevation Likely demand ischemia in the setting of extensive PEs. 3. Type 2 diabetes mellitus/obesity Complicates care, management, recovery, and prognosis. Continue home medications as indicated. Continue to hold metformin given contrast for CT. Discussed obtaining better control of the patient's diabetes, would recommend dietitian consult. Check an A1c. Thank you for the opportunity to participate in this patient's care, please not hesitate contact us with any further questions or concerns. This note was generated with [employer] software. It may contain incorrect words, spelling, and punctuation that were not noted in checking the note before signing.
--- NOTE | 2017-12-18 13:40 | PN_ITS ---
<Hiram Gray - Last Filed: 12/18/17 13:34> Patient Problems: Active and Suspected Problems (Last Updated 12/17/17 @ 22:42 by Greg Walker DO ) Pulmonary embolism (Acute) Tachycardia (Acute) NSTEMI (non-ST elevated myocardial infarction) (Acute) Subjective: mild dyspnea today. On O2 and comfortable. Does not Use O2 at home. Denies hx lung dz. No CP. Does have some heaviness. No Dizziness or LH currently. No Palp. Denies fm hx clots. No personal hx clots. No recent trauma. Has recent tightness of left leg. No recent travel car/plane. Non smoker. No hormone use. No bleeding hx. - Physical Exam General: Alert, Oriented x3, Cooperative HEENT: Atraumatic, PERRLA, EOMI, Normocephalic Neck: Supple, No JVD, Negative Carotid Bruits Lungs: Clear to auscultation, Normal air movement Cardiovascular: Regular rate, No murmurs Abdomen: Bowel Sounds Present, Soft, Non Tender Extremities: No edema, Capillary Refill Less than 3 Seconds Skin: No rashes, No breakdown Musculoskeletal: No Tenderness to Palpation of Joints or Extremities Neurological: Cranial nerves II-XII grossly intact Psych/Mental Status: Normal Affect, Appropriate, Alert and oriented to time, place, person, mood and affect Vital Signs Temp Pulse Resp BP Pulse Ox 98.2 F 93 18 121/72 H 96 12/18/17 11:47 12/18/17 11:47 12/18/17 11:47 12/18/17 11:47 12/18/17 11:47 Oxygen Flow Rate (L/min) 2 Oxygen Delivery Method Nasal Cannula Weight: 109.8 kg Body Mass Index (BMI) 41.3 Intake and Output for Last 24 Hours 12/16/17 12/17/17 12/18/17 23:59 23:59 23:59 Intake Total 120 / 120 3047 / 3047 Balance 120 / 120 3047 / 3047 Laboratory Tests Past 24 Hrs 12/17/17 12/18/17 12/18/17 23:54 02:37 02:37 WBC 16.5 H RBC 4.76 Hgb 11.9 L Hct 36.3 L MCV 76.3 L MCH 25.0 L MCHC 32.8 RDW 16.5 H RDW Differential 43.9 Plt Count 373 MPV 8.2 Sodium Potassium Chloride Carbon Dioxide Anion Gap BUN Creatinine Estim Creat Clear Calc Est GFR (MDRD) Af Amer Est GFR (MDRD) Non-Af BUN/Creatinine Ratio Glucose Calcium Troponin I 0.306 H 0.357 H 12/18/17 02:37 WBC RBC Hgb Hct MCV MCH MCHC RDW RDW Differential Plt Count MPV Sodium 130 L Potassium 3.9 Chloride 97 L Carbon Dioxide 22.0 Anion Gap 11 BUN 11 Creatinine 0.95 Estim Creat Clear Calc 61.18 Est GFR (MDRD) Af Amer 80 Est GFR (MDRD) Non-Af 66 BUN/Creatinine Ratio 11.6 Glucose 221 H Calcium 8.7 Troponin I POC Glucose 12/18/17 12/18/17 11:46 07:03 POC Glucose 284 H 250 H Medical Necessity - Tobacco Use Smoking Status: Never smoker Assessment/Plan All Active Problems (Last Updated 12/17/17 @ 22:42 by Greg Walker DO) Pulmonary embolism (Acute) Tachycardia (Acute) NSTEMI (non-ST elevated myocardial infarction) (Acute) 1. Extensive PE - saddle. Source left leg DVT - see duplex report. Nonprovoked. Xarelto. Echo pending. Elevated trops. Pulm consults. Tachy improving. Currently requiring 2lpm O2. Will likely need at DC. 2. NSTEMI 2/2 above. Continue OAC and check for right heart strain on echo. 3. T2DM - amaryl, ssi 4. Hyponatremia -? 2/2 hyperglycemia. 5. Obesity - diabetic/cardiac diet. This patient was seen by Hiram Gray PA-C under the supervision of Doctor Rod. <Dipak Velasco - Last Filed: 12/18/17 16:23> Subjective: Seen and examined Patient denies previous history of personal DVT/PE or family history of hypercoagulable disorder Admitted yesterday with sudden onset of shortness of breath and hypoxia. Found bilateral PE with saddle embolus. No hypotension although sinus tachycardia, heart rate in 120s yesterday night and currently in 90s. - Physical Exam Lungs: Clear to auscultation, Normal air movement Cardiovascular: Regular rate, Normal S1, Normal S2, No murmurs Vital Signs Temp Pulse Resp BP Pulse Ox 98.2 F 103 H 18 121/72 H 96 12/18/17 11:47 12/18/17 15:06 12/18/17 11:47 12/18/17 11:47 12/18/17 11:47 Oxygen Flow Rate (L/min) 2 Oxygen Delivery Method Nasal Cannula Weight: 242 lb 1.081 oz Body Mass Index (BMI) 41.3 Intake and Output for Last 24 Hours 12/16/17 12/17/17 12/18/17 23:59 23:59 23:59 Intake Total 120 / 120 3047 / 3047 Balance 120 / 120 3047 / 3047 Laboratory Tests Past 24 Hrs 12/17/17 12/18/17 12/18/17 23:54 02:37 02:37 WBC 16.5 H RBC 4.76 Hgb 11.9 L Hct 36.3 L MCV 76.3 L MCH 25.0 L MCHC 32.8 RDW 16.5 H RDW Differential 43.9 Plt Count 373 MPV 8.2 Sodium Potassium Chloride Carbon Dioxide Anion Gap BUN Creatinine Estim Creat Clear Calc Est GFR (MDRD) Af Amer Est GFR (MDRD) Non-Af BUN/Creatinine Ratio Glucose Hemoglobin A1c Calcium Troponin I 0.306 H 0.357 H B-Natriuretic Peptide 12/18/17 12/18/17 12/18/17 02:37 02:37 14:20 WBC RBC Hgb Hct MCV MCH MCHC RDW RDW Differential Plt Count MPV Sodium 130 L Potassium 3.9 Chloride 97 L Carbon Dioxide 22.0 Anion Gap 11 BUN 11 Creatinine 0.95 Estim Creat Clear Calc 61.18 Est GFR (MDRD) Af Amer 80 Est GFR (MDRD) Non-Af 66 BUN/Creatinine Ratio 11.6 Glucose 221 H Hemoglobin A1c 8.5 H Calcium 8.7 Troponin I B-Natriuretic Peptide 384.6 H POC Glucose 12/18/17 12/18/17 11:46 07:03 POC Glucose 284 H 250 H Assessment/Plan This patient was seen in conjunction with Hiram PINON. I have independently interviewed and examined the patient and reviewed pertinent history, examination findings, laboratory and plan of management. I have reviewed the note and agree with the documented findings with the few additional points. In brief, patient is admitted for extensive bilateral PE and CT angiogram of lungs reported as filling defect of the main pulmonary artery and right and left pulmonary artery with saline bolus. Troponins mildly elevated 0.3 and 0.357. 2D echo reviewed and reported as EF 70% with moderate concentric LVH but severely dilated right ventricle with severe RV global systolic dysfunction. Normal right atrium right atrium mildly enlarged. No evidence of ASD. RVSP 42 images history of mild to moderate pulmonary hypertension with mild TR. The patient had unprovoked PE with acute DVT in the left femoral vein, left popliteal vein, left tibioperoneal trunk and posterior tibial vein and left peroneal vein except left common femoral vein; therefore diffuse left lower extremity DVT except left common femoral vein pulmonary consult called for further opinion. I think she will need prolonged period of anticoagulant probably lifelong I have discussed my assessment with Hiram PINON and orders have been reviewed. Clinical Impression(s) from Imaging Studies Chest X-Ray 12/17/17 19:15 IMPRESSION: No acute thoracic pathology. Electronically Signed: Brannon Thomas, at 19:30 EDT Tel , Service support , Chest CTA 12/17/17 20:13 IMPRESSION: Extensive bilateral pulmonary embolism. N.B. : The above information has been verbally conveyed by José Miguel Katz DO to Dr. Patricio Alba, Referring Physician, on 12/17/2017 22:01:34 (ET). Code Visit Inpatient E&M: 46206 Subs Hosp L3
[2017-12-18 15:28] LABS: BNP,B-Type NATRIURETIC PEPTIDE 384.6 pg/mL (0-100)
[2017-12-18 15:40] LABS: Hemoglobin A1c 8.5 % (4.2-6.3)
[2017-12-18] MEDS: Insulin Lispro 100 UNIT/ML INSULN.PEN SQ (16:36)
[2017-12-18 17:01] LABS: Bedside Glucose 382 mg/dL (70-110)
[2017-12-18 22:01] LABS: Bedside Glucose 285 mg/dL (70-110)
[2017-12-19] VITALS (7 sets, daily range): BP systolic 110–131; BP diastolic 72–78; PULSE 94–117; RESP 18; TEMP 36.7–37; O2SAT 92–99
[2017-12-19 06:56] LABS: Bedside Glucose 226 mg/dL (70-110)
[2017-12-19 07:17] LABS: Absolute Lymphocyte Count 2.93 X10^3/ul (0.83-4.51); Absolute Neutrophil Count 7.2 X10^3/uL (2.0-7.7); Basophil# 0.02 X10^3/uL; Basophil% 0.2 % (0-1); Eosinophil# 0.32 X10^3/uL; Eosinophils% 2.8 % (0-5); Hemoglobin 11.1 g/dl (12.0-15.0); Lymphocyte # 2.93 X10^3/ul (4.0); Lymphocyte % 26.1 % (19-41); Mean Corp Hgb Conc 31.7 g/gl (32-36); Mean Corpuscular Hgb 24.8 pg (27.0-32.0); Mean Corpuscular Volume 78.1 fL (81-99); Mean Platelet Vol. 8.7 fl (6.2-12.0); Monocyte# 0.68 X10^3/uL; Monocyte% 6.1 % (0-10); Neutrophil # 7.24 X10^3/uL (2.7-7.7); Neutrophil % 64.4 % (47-70); Platelet Count 299 K/mm3 (150-450); RBC Distribution Width CV 16.4 % (11.6-14.6); RBC Distribution Width SD 45.1 fl (35.1-43.9); Red Blood Count 4.48 M/mm3 (4.2-5.4); White Blood Count 11.2 K/mm3 (4.4-11.0)
[2017-12-19 07:23] LABS: Anion Gap 7 (5-15); BUN 12 mg/dL (7-18); BUN/Creat Ratio 13.5 RATIO (10-20); Calcium,Total 8.4 mg/dL (8.5-10.1); Chloride 104 mmol/L (98-107); Creatinine, Serum 0.89 mg/dL (0.55-1.02); EST Glomerular Filtration Rate 72 mL/min (>60); Est Glom Filt Rate - Afr Amer 87 mL/min (>60); Glucose 222 mg/dL (74-106); Potassium 4.1 mmol/L (3.5-5.1); Sodium Level 136 mmol/L (136-145)
[2017-12-19 07:25] LABS: POSITIVE COUNT NO; POSITIVE DIFFERENTIAL NO; POSITIVE MORPHOLOGY NO
--- NOTE | 2017-12-19 07:55 | PCM.PROGNOTE ---
Patient Problems: Active and Suspected Problems (Last Updated 12/17/17 @ 22:42 by Greg Walker DO) Pulmonary embolism (Acute) Tachycardia (Acute) NSTEMI (non-ST elevated myocardial infarction) (Acute) Subjective: Patient did well overnight. Patient has been weaned to room air. Patient continues to report some dyspnea on exertion, but feels subjectively improved compared to previous. Patient denies any bleeding complications. - Physical Exam General: Alert, Oriented x3, Cooperative, No apparent distress, - - Morbidly obese. Speaking in full sentences HEENT: Atraumatic, PERRLA, EOMI, Normocephalic, - - No scleral icterus or injection noted. Oral: Moist Mucosa, No Gingival or Mucosal Lesions/ Ulcerations Neck: Supple, No JVD, No Nodes, Trachea Midline Lungs: No rhonchi, No wheeze, No rales, Diminished, - - Symmetric expansion. No dullness to percussion. Cardiovascular: Regular rate, Regular Rhythm, Normal S1, Normal S2, No murmurs, No rub noted, No Gallop Abdomen: Bowel Sounds Present, Soft, Non Tender, Non-Distended Extremities: No clubbing, No cyanosis, Capillary Refill Less than 3 Seconds, Edema - Trace lower extremity left greater than right Skin: No rashes, No breakdown Musculoskeletal: No Tenderness to Palpation of Joints or Extremities, No Muscle Wasting Lymphatic: No Cervical, Supraclavicular, or Inguinal Adenopathy Neurological: Cranial nerves II-XII grossly intact, Neuro grossly intact, Motor Exam 5/5 strength throughout Psych/Mental Status: Alert and oriented to time, place, person, mood and affect Vital Signs Temp Pulse Resp BP Pulse Ox 37.0 C 99 18 110/72 99 12/19/17 03:35 12/19/17 06:57 12/19/17 03:35 12/19/17 03:35 12/19/17 03:35 Oxygen Flow Rate (L/min) [ 0 AMBULATING on Room Air] Oxygen Flow Rate (L/min) [At 0 REST on Room Air] Oxygen Flow Rate (L/min) 2 Oxygen Delivery Method Room Air Weight: 109.8 kg Body Mass Index (BMI) 41.3 Intake and Output for Last 24 Hours 12/17/17 12/18/17 12/19/17 23:59 23:59 23:59 Intake Total 120 / 120 3917 / 3917 120 / 120 Balance 120 / 120 3917 / 3917 120 / 120 Laboratory Tests Past 24 Hrs 12/18/17 12/18/17 12/19/17 02:37 14:20 06:10 WBC 11.2 H RBC 4.48 Hgb 11.1 L Hct 35.0 L MCV 78.1 L MCH 24.8 L MCHC 31.7 L RDW 16.4 H RDW Differential 45.1 H Plt Count 299 MPV 8.7 Immature Gran % (Auto) 0.400 Neut % (Auto) 64.4 Lymph % (Auto) 26.1 [place] % (Auto) 6.1 Eos % (Auto) 2.8 Baso % (Auto) 0.2 Absolute Neuts (auto) 7.2 Absolute Lymphs (auto) 2.93 Total Counted Not Reportable Sodium Potassium Chloride Carbon Dioxide Anion Gap BUN Creatinine Estim Creat Clear Calc Est GFR (MDRD) Af Amer Est GFR (MDRD) Non-Af BUN/Creatinine Ratio Glucose Hemoglobin A1c 8.5 H Calcium B-Natriuretic Peptide 384.6 H 12/19/17 06:10 WBC RBC Hgb Hct MCV MCH MCHC RDW RDW Differential Plt Count MPV Immature Gran % (Auto) Neut % (Auto) Lymph % (Auto) [place] % (Auto) Eos % (Auto) Baso % (Auto) Absolute Neuts (auto) Absolute Lymphs (auto) Total Counted Sodium 136 Potassium 4.1 Chloride 104 Carbon Dioxide 25.0 Anion Gap 7 BUN 12 Creatinine 0.89 Estim Creat Clear Calc 65.30 Est GFR (MDRD) Af Amer 87 Est GFR (MDRD) Non-Af 72 BUN/Creatinine Ratio 13.5 Glucose 222 H Hemoglobin A1c Calcium 8.4 L B-Natriuretic Peptide POC Glucose 12/19/17 12/18/17 12/18/17 06:50 21:35 16:33 POC Glucose 226 H 285 H 382 H 12/18/17 11:46 POC Glucose 284 H Medical Necessity - Tobacco Use Smoking Status: Never smoker Tobacco Use: Non-smoker Assessment/Plan All Active Problems (Last Updated 12/17/17 @ 22:42 by Greg Walker DO) Pulmonary embolism (Acute) Tachycardia (Acute) NSTEMI (non-ST elevated myocardial infarction) (Acute) RECOMMENDATIONS 1. Blood sugar optimization 2. Follow-up with nurse practitioner in our office 2 weeks after discharge 3. Possible outpatient polysomnogram and PFT 4. Patient will require repeat echo in approximately 3 months to reassess heart strain/pulmonary artery pressures 5. Okay to discharge from a pulmonary perspective IMPRESSIONS 1. Bilateral pulmonary embolus Patient with significant right ventricular strain noted on echocardiogram in the setting of bilateral pulmonary emboli. This appears to be unprovoked and patient should be on anticoagulation for 6 months. Patient tolerating Xarelto therapy well. Patient was able to be weaned off of supplemental oxygen yesterday, even on ambulation. No bronchodilators are indicated at this time. Patient likely okay to be discharged home from a pulmonary perspective. Will have patient follow-up in 2 weeks with nurse practitioner to ensure recovery and to arrange for follow-up testing that will be needed. 2. Troponin elevation Likely demand ischemia in the setting of extensive PEs. 3. Type 2 diabetes mellitus/obesity Complicates care, management, recovery, and prognosis. Continue home medications as indicated. Defer to hospitalist Thank you for the opportunity to participate in this patient's care, please not hesitate contact us with any further questions or concerns. This note was generated with [employer] dictation software. It may contain incorrect words, spelling, and punctuation that were not noted in checking the note before signing. Code Visit Inpatient E&M: 26868 Subs Hosp L2
[2017-12-19] MEDS: Rivaroxaban 15 MG Tablet PO (07:59)
[2017-12-19] MEDS: Insulin Lispro 100 UNIT/ML INSULN.PEN SQ ×2 (07:59→11:44)
[2017-12-19] MEDS: Pantoprazole Sodium 20 MG Tablet PO (08:00)
[2017-12-19] MEDS: Glimepiride 4 MG Tablet PO (08:00)
[2017-12-19] MEDS: Gabapentin 100 MG Capsule PO ×2 (08:00→11:45)
--- NOTE | 2017-12-19 10:28 | PCM.DC ---
- Discharge Diagnoses Current Active Problems: Current Active and Chronic Problems (Last Updated 12/17/17 @ 22:42 by Greg Walker DO) Pulmonary embolism (Acute) Tachycardia (Acute) NSTEMI (non-ST elevated myocardial infarction) (Acute) Type II diabetes mellitus (Chronic) You will use the following diet at home:: Cardiac Discharge Activity: May Not Drive - for 7 days for acute LLE DVT, May not drive while taking narcotic pain medications. Call your doctor if you observe: Fever of 101 or Higher, Shortness of breath Additional Instructions: IN 2 weeks with Georgie Segal NP, pulmonary clinic. Will need repeat 2D echo after 3 months as an outpatient to ensure resolution of right ventricular dilatation/acute cor pulmonale Allergies/Adverse Reactions: Allergies amoxicillin Adverse Reaction (Verified 12/17/17 18:34) Other metronidazole [From Flagyl] Adverse Reaction (Verified 12/17/17 18:34) Other Medications to take at Discharge Gabapentin [Neurontin] 100 mg PO TID 12/17/17 Glimepiride [Amaryl] 4 mg PO DAILY 12/17/17 Meclizine HCl 25 mg PO DAILY PRN 12/17/17 Meloxicam 15 mg PO PRN PRN 12/17/17 Metformin HCl 1,000 mg PO BID 12/17/17 Omeprazole [Prilosec] 20 mg PO DAILY 12/17/17 Zolpidem Tartrate 10 mg PO DAILY 12/17/17 Rivaroxaban [Xarelto] 15 mg PO BIDCM #40 tab 12/18/17 Rivaroxaban [Xarelto] 20 mg PO DAILY #30 tab 12/18/17 The following prescriptions were given: Rivaroxaban [Xarelto] 20 mg PO DAILY #30 tab Rivaroxaban [Xarelto] 15 mg PO BIDCM #40 tab Primary Care Physician: Michele Kaur MD [Primary Care Provider] - Please follow up with your Primary Care Physician in: in 1-2 weeks Please Follow Up With: Wade Jasso MD When: in 4 weeks
--- NOTE | 2017-12-19 10:31 | PCM.DC.SUM ---
Discharge Date and Diagnosis Date of Admission: 12/17/17 Date of Discharge: 12/19/17 - Primary Discharge Diagnosis Active and Suspected Problems (Last Updated 12/17/17 @ 22:42 by Greg Walker DO) 1 acute bilateral submassive. Extensive PE - saddle. Source left leg DVT Acute cor pulmonale severe right ventricular dilatation, global systolic dysfunction secondary to submassive PE: Acute hypoxic respiratory failure secondary to bilateral Submassive PE: Resolved Elevated troponin secondary to bilateral extensive PE: Continue OAC Hyponatremia most probably secondary to hypoglycemia:-Hyponatremia resolved. - Secondary Discharge Diagnosis Chronic Problems (Last Updated 12/17/17 @ 22:42 by Greg Walker DO) Type II diabetes mellitus (Chronic) Hospital Course and Treatment Summary of Care Provided: The patient is a 52 year old F was admitted to PCU SOB, hypoxia due to extensive bilateral PE and CT angiogram of lungs reported as filling defect of the main pulmonary artery and right and left pulmonary artery with saline bolus. Troponins mildly elevated 0.3 and 0.357. 2D echo reviewed and reported as EF 70% with moderate concentric LVH but severely dilated right ventricle with severe RV global systolic dysfunction. Normal right atrium right atrium mildly enlarged. No evidence of ASD. RVSP 42 images history of mild to moderate pulmonary hypertension with mild TR. The patient had unprovoked PE with acute DVT in the left femoral vein, left popliteal vein, left tibioperoneal trunk and posterior tibial vein and left peroneal vein except left common femoral vein; therefore diffuse left lower extremity DVT except left common femoral vein Mechanical Design Technician was consulted and he suggested no present indication for thrombolytics. Advised at least 6 months of antithrombotic agent, Xarelto. Today seen and examined Heart rate in 90s. Pulse ox 98% room air General: Alert, Oriented x3, Cooperative HEENT: Atraumatic, PERRLA, EOMI, Normocephalic Neck: Supple, No JVD, Negative Carotid Bruits Lungs: Clear to auscultation, Normal air movement. Hypoxia resolved Cardiovascular: Regular rate, No murmurs Abdomen: Bowel Sounds Present, Soft, Non Tender Extremities: No edema, Capillary Refill Less than 3 Seconds Skin: No rashes, No breakdown Musculoskeletal: No Tenderness to Palpation of Joints or Extremities Neurological: Cranial nerves II-XII grossly intact Psych/Mental Status: Normal Affect, Appropriate, Alert and oriented to time, place, person, mood and affect His overall hospital course as follows 1 bilateral submassive. Extensive PE - saddle. Source left leg DVT as mentioned above. Nonprovoked. Xarelto. Needs to continue Xarelto for 3 months. Follow-up pulmonary clinic in 2 months with nurse practitioner, Dr. Jasso in 3-4 weeks. Repeat 2D echo after 3 months to look for resolution of right ventricular strain. Acute cor pulmonale severe right ventricular dilatation, global systolic dysfunction secondary to submassive PE: Acute hypoxic respiratory failure secondary to bilateral Submassive PE: Resolved 2. Elevated troponin secondary to bilateral extensive PE: Continue OAC 3. T2DM - amaryl, ssi 4. Hyponatremia most probably secondary to hypoglycemia:-Hyponatremia resolved. 5. Obesity - diabetic/cardiac diet. Discharge medication reconciliation done. Follow-up instructions completed. Total time spent, exact 35 minutes on discharge meds reconciliation, examination, review of imaging and blood test and discussion with the patient on follow-up instructions. Discharge Activity: May Not Drive - for 7 days for acute LLE DVT, May not drive while taking narcotic pain medications. Call your doctor if you observe: Fever of 101 or Higher, Shortness of breath Home Medications: Medications to take at Discharge Gabapentin [Neurontin] 100 mg PO TID 12/17/17 Glimepiride [Amaryl] 4 mg PO DAILY 12/17/17 Meclizine HCl 25 mg PO DAILY PRN 12/17/17 Meloxicam 15 mg PO PRN PRN 12/17/17 Metformin HCl 1,000 mg PO BID 12/17/17 Omeprazole [Prilosec] 20 mg PO DAILY 12/17/17 Zolpidem Tartrate 10 mg PO DAILY 12/17/17 Rivaroxaban [Xarelto] 15 mg PO BIDCM #40 tab 12/18/17 Rivaroxaban [Xarelto] 20 mg PO DAILY #30 tab 12/18/17 Following Prescrptions Were Given to Patient: Rivaroxaban [Xarelto] 20 mg PO DAILY #30 tab Rivaroxaban [Xarelto] 15 mg PO BIDCM #40 tab Primary Care Physician: Michele Kaur MD [Primary Care Provider] - Please follow up with your Primary Care Physician in: in 1-2 weeks Please Follow Up With: Wade Jasso MD When: in 4 weeks Medical Necessity - Tobacco Use Smoking Status: Never smoker Tobacco Use: Non-smoker Meaningful Use Info Meaningful Use Diagnoses (Choose all that apply): None applicable Code Visit Inpatient E&M: 71447 Disch Hosp
[2017-12-19 12:10] LABS: Bedside Glucose 327 mg/dL (70-110)
== END 2017-12-19 12:27 | disposition home or self-care (01) | DRG 175 ==
LOC: ED 21:25 → PCU 22:54
PROVIDERS: Nurse Practitioner Family; Emergency Provider Emergency Medicine; Family Provider Family Medicine; PCP Family Medicine; Visit Provider Internal Medicine
DX: I26.02 Saddle embolus of pulmonary artery with acute cor pulmonale (principal); J96.01 Acute respiratory failure with hypoxia; Z68.41 Body mass index [BMI] 40.0-44.9, adult; I82.412 Acute embolism and thrombosis of left femoral vein; I82.432 Acute embolism and thrombosis of left popliteal vein; I82.442 Acute embolism and thrombosis of left tibial vein; E87.1 Hypo-osmolality and hyponatremia; E66.9 Obesity, unspecified; E11.9 Type 2 diabetes mellitus without complications; Z79.84 Long term (current) use of oral hypoglycemic drugs; R79.89 Other specified abnormal findings of blood chemistry
CPT/HCPCS: 36415; 71045; 71275; 80048; 82962; 83036; 83880; 84484; 85025; 85027; 85379; 93005; 93306; 93970; 99283; J7030; Q9957; Q9967; A4216

== ENCOUNTER 2018-02-09 16:25 | Emergency (ER) | payer MEDICARE, SELFPAY ==
[2018-02-09 16:26] VITALS: BP 158/90; PULSE 89; RESP 16; TEMP 36.9; O2SAT 100; BMI 41.4
--- NOTE | 2018-02-09 17:23 | CT_ITS ---
STUDY: CTA CHEST REASON FOR EXAM: Female, 52 years old. Chest pain. History of pulmonary anulus. Evaluate for pulmonary embolus. RADIATION DOSAGE (If Supplied By Facility): CTDIvol = ( 16.59 ) mGy, DLP = ( 696.36 ) mGycm TECHNIQUE: The examination was performed with the intravenous administration of 100 ml of Isovue 370 contrast material. Post-processing of the angiographic images was performed, with multiplanar reformation and 3D reconstruction. Individualized dose optimization techniques were used for this CT. COMPARISON: 12/17/2017 FINDINGS: There are thin linear peripheral filling defects in the bilateral lower lobe segmental pulmonary arteries. These are consistent with chronic pulmonary emboli and are in the same distribution of the previously seen pulmonary emboli on the CT dated 12/17/2017. When compared with the prior exam, the clot burden has significantly decreased. There are no acute pulmonary emboli identified on the current exam. There is no evidence of thoracic aortic aneurysm or dissection. The heart and pericardium are within normal limits. There are no pulmonary infiltrates or pleural effusions. There is no pneumothorax. There is no thoracic lymphadenopathy. Images through the upper abdomen demonstrate no significant abnormality. CT/CTA Chest W/WO Contrast IMPRESSION: Thin linear peripheral filling defects in the bilateral segmental lower lobe pulmonary arteries which are consistent with chronic pulmonary emboli. When compared with the prior exam, the clot burden has significantly decreased. No acute pulmonary emboli. No thoracic aortic aneurysm or dissection. Clear lungs. Electronically Signed: Brannon Thomas, at 19:10 EDT Tel , Service support ,
[2018-02-09 17:33] VITALS: BP 124/68; PULSE 79; RESP 17; O2SAT 99
[2018-02-09] MEDS: 0.9% Normal Saline 1,000 ML 150 ML IV (17:40)
[2018-02-09 17:50] LABS: Absolute Lymphocyte Count 2.15 X10^3/ul (0.83-4.51); Absolute Neutrophil Count 6.2 X10^3/uL (2.0-7.7); Basophil# 0.01 X10^3/uL; Basophil% 0.1 % (0-1); Eosinophil# 0.18 X10^3/uL; Hematocrit 31.8 % (37-47); Hemoglobin 9.5 g/dl (12.0-15.0); Lymphocyte # 2.15 X10^3/ul (4.0); Lymphocyte % 23.8 % (19-41); Mean Corp Hgb Conc 29.9 g/gl (32-36); Mean Corpuscular Hgb 23.4 pg (27.0-32.0); Mean Corpuscular Volume 78.3 fL (81-99); Monocyte# 0.45 X10^3/uL; Neutrophil # 6.23 X10^3/uL (2.7-7.7); Platelet Count 330 K/mm3 (150-450); RBC Distribution Width SD 45.7 fl (35.1-43.9); Red Blood Count 4.06 M/mm3 (4.2-5.4)
[2018-02-09 18:01] LABS: International Normalized Ratio 1.2; Prothrombin Time (Protime)PT. 15.1 SECONDS (11.7-14.9)
[2018-02-09 18:17] LABS: POSITIVE COUNT NO; POSITIVE DIFFERENTIAL NO; POSITIVE MORPHOLOGY NO
[2018-02-09 18:28] LABS: Anion Gap 8 (5-15); BUN 10 mg/dL (7-18); BUN/Creat Ratio 12.5 RATIO (10-20); Calcium,Total 9.3 mg/dL (8.5-10.1); Chloride 106 mmol/L (98-107); EST Glomerular Filtration Rate 80 mL/min (>60); Est Glom Filt Rate - Afr Amer 97 mL/min (>60); Estimated Creatinine Clearance 72.65 ml/min; Glucose 131 mg/dL (74-106); Potassium 3.7 mmol/L (3.5-5.1); Sodium Level 141 mmol/L (136-145)
[2018-02-09 19:30] VITALS: BP 135/76; PULSE 85; RESP 16; O2SAT 98
--- NOTE | 2018-02-09 20:04 | ED.DCSUM_ITS ---
- ER Visit Summary Date of Service: 02/09/18 Chief Complaint: Chest pain History of Present Illness: The patient is a 52 F for intermittent chest pain over the past week. She describes an aching sensation in her left upper chest. She has had some mild palpitations. She states her symptoms seem to be worse when she walks out into the heat and is not sure if it is just heat related. Patient was diagnosed with a PE approximate 7 weeks ago. She is currently on Xarelto. Physical Examination: Vital signs significant for blood pressure of 158/90, otherwise normal. Patient sitting upright in bed. Heart is regular rate and rhythm. Lung sounds are clear with good air movement. Chest wall is nontender. Abdomen is soft and nontender. Lower extremity examination was 1+ left lower extremity edema. Strong distal pulses are noted. Test Results: EKG is sinus 82 with no sign of acute ischemia. CBC was a hemoglobin of 9.5. This is slightly dropped from December 19 at which time her hemoglobin was 11.1. Chemistry studies unremarkable. Coags normal. Troponin less than 0.015. CT of the chest shows thin linear peripheral filling defects consistent with chronic PE. Clot burden when compared to prior study is significantly improved. No acute PEs are noted. Emergency Department Course and Treatment: Patient is given IV fluids. On repeat evaluation she is resting comfortably. I did discuss with her that her symptoms may be brought on simply from the heat and humidity. She states that she is comfortable when she is sitting inside her air conditioning. She is to follow with her doctor as scheduled. Treatment Plan: [] Disposition: Discharge Impression: Atypical chest pain This note was generated with [employer] dictation software. It may contain incorrect words, spelling, and punctuation that were not noted in review of the chart prior to signing ED Disposition - Plan for ED Patient: Chief Complaint: Chest Pain Referrals: Michele Kaur MD [Primary Care Provider] -
--- NOTE | 2018-02-09 20:04 | ED.DEP ---
ED Disposition - Plan for ED Patient: Disposition: Home or Assisted Living Chief Complaint: Chest Pain Instructions: ED Chest Pain NonCardiac Referrals: Michele Kaur MD [Primary Care Provider] - 1-2 Weeks
[2018-02-09 20:33] VITALS: BP 128/73; PULSE 78; RESP 19
== END 2018-02-09 20:41 | disposition home or self-care (01) ==
PROVIDERS: Emergency Provider Emergency Medicine; Family Provider Family Medicine; PCP Family Medicine
DX: R07.89 Other chest pain (principal); I25.2 Old myocardial infarction; I27.20 Pulmonary hypertension, unspecified; E11.9 Type 2 diabetes mellitus without complications; R42 Dizziness and giddiness; Z86.711 Personal history of pulmonary embolism; Z79.01 Long term (current) use of anticoagulants; Z79.84 Long term (current) use of oral hypoglycemic drugs; Z79.899 Other long term (current) drug therapy
CPT/HCPCS: 71275; 80048; 84484; 85025; 85610; 85730; 93005; 96360; 96361; 99284; J7030; Q9967; A4216

== ENCOUNTER 2020-03-15 12:16 | Emergency (ER) | payer MEDICARE, MEDICAID, SELFPAY ==
[2020-03-15 12:17] VITALS: BP 150/83; PULSE 102; RESP 16; TEMP 36.8; O2SAT 99; BMI 41.6
--- NOTE | 2020-03-15 12:27 | VDLE_ITS ---
Reason For Study: swelling RIGHT GSV is normal. CFV is compressible, spontaneous, phasic, competent and demonstrates normal augmentation. FV is partially compressible with decreased flow. POP V, T/P Trunk, PTV, Peroneal V, and Soleus V are dilated and noncompressible. Procedure Exam performed portable in ED. The exam was abbreviated due to the COVID 19 protocol. The exam was diagnostic. A preliminary report was called and/or faxed to Dr. Guo. Interpretation Summary Acute deep vein thrombosis is noted in the right femoral vein. Acute deep vein thrombosis is noted in the right popliteal vein. Acute deep vein thrombosis is noted in the right tibio-peroneal trunk. Acute deep vein thrombosis is noted in the right posterior tibial vein. Acute deep vein thrombosis is noted in the right peroneal vein. Acute deep vein thrombosis is noted in the right soleus vein. The right common femoral vein is patent, compressible, and competent. The right great saphenous vein appears patent and compressible segmentally. Ordering Physician: Nir Guo Performed By: Moe Polo RVT
--- NOTE | 2020-03-15 12:46 | ED.DCSUM_ITS ---
History of Present Illness Chief Complaint: Lower Extremity Injury Informant: Patient Onset: Yesterday Context: Gradual Onset Timing: Intermittent Current Severity: Moderate Maximum Severity: Moderate Narrative: Patient is a 54-year-old female with medical history significant for prior pulmonary embolus and presents to the emergency department with right calf pain. She states it began yesterday. She states she had a dull ache there. When she got off the bus today, and started to hurt again. She was concerned because of her history of prior DVT. She denies chest pain or shortness of breath. She has been off anticoagulants for over a year. She states from time to time, the knee will give out on her. She states she does have arthritis. Prior similar symptoms: No Recent Illness/Hospitalization: No Past Medical History - Allergies and Home Meds Allergies/Adverse Reactions: Allergies amoxicillin Adverse Reaction (Verified 03/15/20 12:20) Other metronidazole [From Flagyl] Adverse Reaction (Verified 03/15/20 12:20) Other Primary Care Physician: Michele Kaur MD [Primary Care Provider] - 2 Days Prior records reviewed: Yes Past Medical History: - - Prior pulmonary embolus, hypertension Surgical History: noncontributory, - - no pertinent history Smoking Status: Never smoker - Family History Maternal Family History: Family History (Last Reviewed 02/05/18 @ 11:27 by Georgie Segal NP, OPERATIONS RESEARCH SCIENTIST-C) Mother Hypertension Brother Hypertension Family History: Reports: Diabetes, - - stomach and lung cancer Paternal Family History: Family History (Last Reviewed 02/05/18 @ 11:27 by Georgie Segal NP, OPERATIONS RESEARCH SCIENTIST-C) Mother Hypertension Brother Hypertension Family History: Reports: - - alcoholism Sibling Family History: Family History (Last Reviewed 02/05/18 @ 11:27 by Georgie Segal NP, OPERATIONS RESEARCH SCIENTIST-C) Mother Hypertension Brother Hypertension Family History: Reports: Diabetes, Hypertension, - - AFIB Review of Systems General: Denies: Chills, Fever, Sweats Eyes: Denies: Visual changes - bilaterally, Diplopia ENT: Denies: Rhinorrhea, Sore throat Cardiovascular: Denies: Chest pain, Palpitations Respiratory: Denies: Dyspnea, Cough, Dyspnea on exertion Gastrointestinal: Denies: Abdominal pain, Nausea, Vomiting, Diarrhea, Melena, Hematochezia Genitourinary: Denies: Dysuria, Hematuria, Frequency Musculoskeletal: Reports: Extremity Pain. Denies: Back pain Skin: Denies: Rash, Wounds Neurological: Denies: Headache, Weakness, Numbness Physical Exam Vital Signs/Narrative: Vital Signs Temp Pulse Resp BP Pulse Ox 03/15/20 12:17 98.2 F 102 H 16 150/83 H 99 Inital Vital Signs reviewed: Yes General: Well nourished, Well developed, No Acute Distress Head: Normocephalic, Atraumatic Eyes: Perrl, EOMI ENT: Moist mucous membranes, No rhinorrhea Neck: Supple, Nontender Cardiovascular: Regular rate, Regular rhythm, No murmurs Respiratory: No distress, CTA bilaterally, Chest nontender Abdomen: Soft, Nontender, Nondistended, Normal bowel sounds Back: Nontender, Normal Inspection Extremities: No edema, Calf Tenderness Skin: Normal color, No rash Neurological: Alert, Oriented x3, Cranial nerves II-XII grossly intact, Normal Strength, Normal Sensation Psychological: Normal affect, Normal Mood Diagnostic/Tx/Re-eval - Medical Decision Making The patient has had no chest pain, shortness of breath, hemoptysis, or exertional dyspnea. She does have some mild tenderness in the calf. Given her history, I did obtain ultrasound of the lower extremity. She does have DVT from the femoral vein more distal. She has normal perfusion. However, as this is a recurrent clot that was unprovoked I do feel that she is going to require anticoagulation. I have reached out to her primary care through the [facility] to discuss this. The patient was on Xarelto before and tolerated it. I will write her a new prescription and ensure close follow-up. Impression 1. Right lower extremity DVT ED Disposition - Plan for ED Patient: Instructions: ED DVT Prescriptions: Rivaroxaban [Xarelto] 15 mg PO BID #42 tab Prescription Printed Referrals: Michele Kaur MD [Primary Care Provider] - 2 Days
[2020-03-15 13:38] VITALS: BP 147/83; PULSE 98; RESP 16; O2SAT 97
== END 2020-03-15 13:41 | disposition home or self-care (01) ==
PROVIDERS: Emergency Provider Emergency Medicine; PCP Family Medicine
DX: I82.411 Acute embolism and thrombosis of right femoral vein (principal); I82.431 Acute embolism and thrombosis of right popliteal vein; I82.441 Acute embolism and thrombosis of right tibial vein; I82.451 Acute embolism and thrombosis of right peroneal vein; I82.461 Acute embolism and thrombosis of right calf muscular vein; I10 Essential (primary) hypertension; M19.90 Unspecified osteoarthritis, unspecified site; Z86.718 Personal history of other venous thrombosis and embolism; Z86.711 Personal history of pulmonary embolism; Z79.899 Other long term (current) drug therapy
CPT/HCPCS: 93971; 99282

== ENCOUNTER 2020-05-29 22:27 | Emergency (ER) | payer MEDICARE, MEDICAID, SELFPAY ==
[2020-05-29 22:27] VITALS: BP 143/79; PULSE 117; RESP 20; TEMP 37.3; O2SAT 98; BMI 38.6
[2020-05-29 22:37] VITALS: BP 143/79; PULSE 117; RESP 20; TEMP 37.3; O2SAT 98
--- NOTE | 2020-05-29 22:40 | EKG12_ITS ---
Test Reason : DYSRHYTHMIA Blood Pressure : / mmHG Vent. Rate : 114 BPM Atrial Rate : 114 BPM P-R Int : 150 ms QRS Dur : 072 ms QT Int : 322 ms P-R-T Axes : 023 -14 014 degrees QTc Int : 443 ms Sinus tachycardia Otherwise normal ECG Confirmed by JOHN SALGADO, ULISES ([id number]), society editor JAISON BENJAMIN ([id number]) on 06/01/2020 10:59:59 AM Referred By: THERON Confirmed By:ULISES LOPEZ MD
--- NOTE | 2020-05-29 23:05 | ED.VISSUMM ---
- ER Visit Summary Date of Service: 05/29/20 Chief Complaint: Near syncope History of Present Illness: The patient is a 55 F who presents with near syncope. She states that about 1/2-hour ago she was at [employer] when she felt like she was in a pass out. She lowered herself to the ground. She did not fully pass out. She had no chest pain at that time but now she says she does. No shortness of breath. The pain is in the middle part of her chest. Does not radiate. She denies any recent falls. She does have a history of vertigo and feels like that is acting up on her currently. She is on Xarelto for history of DVT/PE. She has had a fever over the last couple of days. Her T-max was 102 ?F. She was concerned about an exposure to coronavirus. Physical Examination: Vital signs reviewed. HEENT exam unremarkable. Heart is tachycardic and regular rhythm without murmurs. Lungs are clear to auscultation. Abdomen is soft and nontender. Extremities reveal no edema. Skin exam normal. Neurologic exam normal. Test Results: EKG is sinus tachycardia with no ST changes. Chest x-ray per my interpretation shows questionable bilateral atypical infiltrates. This could be coronavirus. Hemoglobin is 11.3. White count normal. Troponin normal. Her Covid antigen is positive Emergency Department Course and Treatment: The patient does have coronavirus as suspected by her chest x-ray. She is 95% upon reevaluation. She has no complaints of shortness of breath. I recommend she quarantine at home. She will continue increasing fluids and taking Tylenol for any symptoms. She will follow-up with her PCP Treatment Plan: [] Disposition: Discharge Impression: Near syncope, COVID-19 This note was generated with [employer] dictation software. It may contain incorrect words, spelling, and punctuation that were not noted in review of the chart prior to signing ED Disposition - Plan for ED Patient: Disposition: Home or Assisted Living Referrals: Michele Kaur MD [Primary Care Provider] -
--- NOTE | 2020-05-29 23:06 | RAD_ITS ---
STUDY: X-RAY CHEST REASON FOR EXAM: Female, 55 years old. PASSED OUT AT [employer]. VERTIGO. POSSIBLE COVID EXPOSURE LAST THURSDAY. TECHNIQUE: Single AP portable view of the chest. COMPARISON: December 17, 2017 chest x-ray FINDINGS: There is a small focal patchy density in the right lower lobe and in the left perihilar region. There is no demonstrated pleural abnormality. Normal size heart. Normal mediastinum and ángela. Normal visualized pulmonary arteries. Normal visualized aortic arch and descending thoracic aorta. There are diffuse degenerative changes of the visualized thoracic spine. Normal visualized ribs, clavicles, and shoulders. There is no demonstrated abnormality of the visualized soft tissue structures of the upper abdomen. RAD/Chest 1 View (Portable) IMPRESSION: Subtle density in the mid chest which may represent atelectasis versus subtle infiltrates possible atypical infiltrates including potential for Covid pneumonia. Electronically Signed: Yamilex Lucas MD at 23:35 EST Tel , Service support ,
[2020-05-29 23:20] LABS: Absolute Lymphocyte Count 0.89 X10^3/uL (0.83-4.51); Absolute Neutrophil Count 7.6 X10^3/uL (2.0-7.7); Basophil# 0.02 X10^3/uL; Basophil% 0.2 % (0-1); Eosinophil# 0.02 X10^3/uL; Eosinophils% 0.2 % (0-5); Hematocrit 39.2 % (37-47); Hemoglobin 11.3 g/dL (12.0-15.0); Lymphocyte # 0.89 X10^3/ul (4.0); Lymphocyte % 9.7 % (19-41); Mean Corp Hgb Conc 28.8 g/dL (32-36); Mean Corpuscular Hgb 21.7 pg (27.0-32.0); Mean Corpuscular Volume 75.2 fL (81-99); Mean Platelet Vol. 8.4 fl (6.2-12.0); Monocyte# 0.46 X10^3/uL; NRBC Flagged by Analyzer 0 % (0-5); Neutrophil # 7.58 X10^3/uL (2.7-7.7); Neutrophil % 82.8 % (47-70); Platelet Count 342 K/mm3 (150-450); RBC Distribution Width CV 16.4 % (11.6-14.6); Red Blood Count 5.21 M/mm3 (4.2-5.4); White Blood Count 9.2 K/mm3 (4.4-11.0)
[2020-05-29 23:33] LABS: Anion Gap 11 (5-15); BUN 13 mg/dL (7-18); BUN/Creat Ratio 11.8 RATIO (10-20); Calcium,Total 9.1 mg/dL (8.5-10.1); Chloride 101 mmol/L (98-107); EST Glomerular Filtration Rate 55 mL/min (>60); Est Glom Filt Rate - Afr Amer 67 mL/min (>60); Estimated Creatinine Clearance 51.07 ml/min; Glucose 218 mg/dL (74-106); Potassium 3.5 mmol/L (3.5-5.1); Sodium Level 134 mmol/L (136-145)
[2020-05-30 00:18] VITALS: BP 131/72; PULSE 112; RESP 20; O2SAT 94
== END 2020-05-30 00:19 | disposition home or self-care (01) ==
PROVIDERS: Emergency Provider Emergency Medicine; PCP Family Medicine
DX: U07.1 COVID-19 (principal); R55 Syncope and collapse; I10 Essential (primary) hypertension; E11.9 Type 2 diabetes mellitus without complications; Z86.718 Personal history of other venous thrombosis and embolism; Z86.711 Personal history of pulmonary embolism; Z79.01 Long term (current) use of anticoagulants; Z79.84 Long term (current) use of oral hypoglycemic drugs; Z79.899 Other long term (current) drug therapy
CPT/HCPCS: 71045; 80048; 84484; 85025; 87426; 93005; 99284; A4216

== ENCOUNTER 2021-07-01 13:35 | Emergency (ER) | payer MEDICARE, SELFPAY ==
[2021-07-01 13:38] VITALS: BP 126/102; PULSE 102; RESP 16; TEMP 35.7; O2SAT 98; BMI 42.7
[2021-07-01 13:50] VITALS: BP 136/88; PULSE 85; RESP 16; O2SAT 99; BMI 41.3
[2021-07-01 14:00] LABS: Bedside Glucose 264 mg/dL (70-110)
--- NOTE | 2021-07-01 14:53 | CT_ITS ---
INDICATION: right facial weakness EXAMINATION: CT BRAIN - CT Head or Brain W/O Contrast Injection TECHNIQUE: Multiple axial images were obtained of the head without intravenous contrast. A radiation dose optimization technique was used for this scan. IV Contrast dosage and agent: None. COMPARISON: None. FINDINGS: Subtle scattered areas of low attenuation visualized in the periventricular and subcortical white matter suggestive of chronic microvascular disease. No evidence of acute territorial infarct is seen. A focal area of encephalomalacia is visualized in the right basal ganglia, extraocular dilatation of the right lateral ventricle is visualized consistent with remote vascular insult. No evidence of parenchymal hemorrhages is visualized. No evidence of intra or extra-axial fluid collection is seen. No evidence of intracranial mass or mass effect, no evidence of midline shift is seen. No structural Brain abnormality is visualized. Focal area of low attenuation visualized within the albina most likely artifactual due to beam hardening artifact. Appropriate for age. No hydrocephalus. Basal cisterns are patent. Unremarkable aeration of the paranasal sinuses and the mastoid air cells. No discrete lytic or blastic bone abnormalities. Both globes, extraocular muscles, optic nerves and retrobulbar fat appear unremarkable. CT/Brain/Head without Contrast IMPRESSION: Chronic microvascular disease, chronic encephalomalacia, no evidence of acute pathology is seen. Electronically Signed: Gallo Rivas MD at 15:42 EST Tel , Service support ,
--- NOTE | 2021-07-01 14:57 | EX.ED.DYSGE1 ---
HPI History of Present Illness Chief Complaint: Neuro S/Sx Informant: patient Narrative Narrative: Patient presents with right facial weakness. It takes quite some time to pin her down to a time or date of onset. The best I can tell is this likely started Thursday afternoon some time. Therefore, we are about 2 days into this. She sometimes say she has pain on her face sometimes she denies it. She sometimes states she has a headache she sometimes denies it. She does not have any other neurologic symptoms no. She does have a history of high blood pressure and diabetes. She has never had a stroke. She has a history of vertigo but is not having that at this time. [facility] Medical History (Updated 07/01/21 @ 15:[address] Perez Carrillo MD) DM2 (diabetes mellitus, type 2) Vertigo Home Medications gabapentin 100 mg PO TID 12/17/17 [History Last Taken 12/17/17] glimepiride 4 mg PO DAILY 12/17/17 [History Last Taken 12/17/17] meclizine 25 mg PO DAILY PRN 12/17/17 [History Last Taken 12/17/17] meloxicam 15 mg PO PRN PRN 12/17/17 [History Last Taken Unknown] metformin 1,000 mg PO BID 12/17/17 [History Last Taken 12/17/17] omeprazole 20 mg PO DAILY 12/17/17 [History Last Taken 12/17/17] zolpidem 10 mg PO DAILY PRN 12/17/17 [History Last Taken 12/16/17] rivaroxaban 15 mg PO BID #42 tab 03/15/20 [Rx Last Taken Unknown] acyclovir 1 tab PO 5X/DAY #35 tab 07/01/21 [Rx Last Taken Unknown] prednisone 60 mg PO DAILY #15 tab 07/01/21 [Rx Last Taken Unknown] Allergy/AdvReac Type Severity Reaction Status Date / Time amoxicillin AdvReac Other Verified 07/01/21 13:37 metronidazole [From Flagyl] AdvReac Other Verified 07/01/21 13:37 Family History Mother Hypertension Brother Hypertension Surgical History History of cholecystectomy Social History Smoking Status: Never smoker alcohol intake: never substance use type: does not use ROS ROS ED Constitutional Constitutional ED: Denies chills or fever(s) Eyes Eyes: Reports other Details: No eye pain or discomfort. ; Denies blurry vision or change in vision ENT ENT ED: Reports ear pain and other Details: Mild crease hearing in right ear. ; Denies rhinorrhea Cardiovascular Cardiovascular: Denies chest pain or palpitations Respiratory/Chest Respiratory/Chest: Denies cough or dyspnea Gastrointestinal Gastrointestinal: Denies abdominal pain, nausea or vomiting Genitourinary Genitourinary ED: Denies dysuria Musculoskeletal Musculoskeletal: Denies back pain, myalgias or neck pain Integumentary Denies rash Neurologic Neurologic: Reports other Details: See history of present illness Psychiatric Psychiatric: Denies anxiety or depression Endocrine Endocrinology: Denies polydipsia or polyuria Allergic/Immunologic Allergic/Immunologic ED: Denies urticaria EXAM Physical Exam Const Vital Signs: 07/01/21 13:38 07/01/21 13:50 07/01/21 15:41 Temperature 96.2 F L Temperature Source Temporal Pulse Rate 102 H 85 86 Respiratory Rate 16 16 16 Blood Pressure 126/102 H 136/88 H 137/79 H Blood Pressure Mean 110 104 98 Pulse Ox 98 99 95 Oxygen Delivery Method Room Air Room Air Positive well nourished, well developed and obese General Appearance ED: well developed and NAD Nutritional Appearance: obese HEENT HEENT Narrative: No rash. No vesicles. She does have weakness on the right side of her face including her forehead. She is able to close her eye on the right but nowhere near as tightly as the left. Negative for trauma or tenderness Eyes PERRL and EOMs intact bilaterally Neck supple Chest Wall inspection of chest normal Resp normal respiratory effort and clear to auscultation bilaterally Effort and Inspection: Negative for pain with movement Auscultation: Negative for rales, rhonchi or wheezes Cardio regular rate and regular rhythm GI normal to inspection, nondistended, normoactive bowel sounds and non-tender Palpation: soft Back/Spine no CVA tenderness Extremity normal to inspection General Extremety ED: Negative for edema or tenderness General Extremity: Negative for edema Neuro Neuro Narrative: Patient has right facial weakness above. I do not find any weakness or sensory changes of her extremities. There is no discoordination. Sensorium / Orientation: alert Psych mental status grossly normal MDM MDM MDM Narrative Medical decision making narrative: Patient's blood work shows no acute process. Glucose is a bit elevated but at her baseline. Despite symptoms for a little over 48 hours, her CT is normal. This patient's exam and history are consistent with Black's palsy. Her CT is not showing any acute process. I do not think she needs to be admitted for stroke symptoms. I will get her on prednisone and antivirals. I explained that the prednisone will likely raise her blood sugar but she should watch her diet and decrease carb intake. We discussed reasons to return. Lab Data Attestation: I reviewed the patient's lab results. Labs: Laboratory Results - last 24 hr 07/01/21 07/01/21 07/01/21 13:53 15:10 15:10 WBC 9.8 RBC 5.12 Hgb 13.9 Hct 42.4 MCV 82.8 MCH 27.1 MCHC 32.8 RDW Std Deviation 44.5 H RDW Coeff of Ibis 14.9 H Plt Count 288 MPV 8.2 Immature Gran % (Auto) 1.000 H Neut % (Auto) 69.2 Lymph % (Auto) 22.3 Boundary % (Auto) 5.2 Eos % (Auto) 1.8 Baso % (Auto) 0.5 Absolute Neuts (auto) 6.7 Absolute Lymphs (auto) 2.17 Nucleated RBC % 0 Sodium 137 Potassium 4.2 Chloride 103 Carbon Dioxide 27.0 Anion Gap 7 BUN 10 Creatinine 0.85 Estim Creat Clear Calc 65.34 Est GFR (MDRD) Af Amer 90 Est GFR (MDRD) Non-Af 74 BUN/Creatinine Ratio 11.8 Glucose 234 H Calcium 9.8 POC Glucose 264 H Radiography Diagnostic Testing: Clinical Impression(s) from Imaging Studies Brain CT 07/01/21 14:53 IMPRESSION: Chronic microvascular disease, chronic encephalomalacia, no evidence of acute pathology is seen. Electronically Signed: Gallo Rivas MD at 15:42 EST Tel , Service support , Discharge Plan Triage Chief Complaint: Neuro S/Sx ED Provider: Perez Carrillo Dx/Rx/DC Orders Clinical Impression: Right-sided Black's palsy Instructions: ED Black's Palsy Prescriptions: New acyclovir 400 mg tablet 1 tab PO 5X/DAY Qty: 35 RF: 0 prednisone 20 MG tablet 60 mg PO DAILY Qty: 15 RF: 0 No Action meloxicam 15 MG tablet 15 mg PO PRN PRN (Reason: FOOT PAIN) RF: 0 meclizine 25 MG tablet 25 mg PO DAILY PRN (Reason: Dizziness) RF: 0 metformin 1,000 MG tablet 1,000 mg PO BID RF: 0 glimepiride 4 MG tablet 4 mg PO DAILY RF: 0 omeprazole 20 MG capsule 20 mg PO DAILY RF: 0 gabapentin 100 MG capsule 100 mg PO TID RF: 0 zolpidem 10 MG tablet 10 mg PO DAILY PRN (Reason: Sleep) RF: 0 rivaroxaban 15 MG tablet 15 mg PO BID Qty: 42 RF: 0 Primary Care Provider: Michele Kaur Referrals: Michele Kaur MD [Primary Care Provider] - Disposition Disposition: Home, Self Care
[2021-07-01 15:16] LABS: Absolute Lymphocyte Count 2.17 X10^3/uL (0.83-4.51); Absolute Neutrophil Count 6.7 X10^3/uL (2.0-7.7); Basophil# 0.05 X10^3/uL; Basophil% 0.5 % (0-1); Eosinophil# 0.18 X10^3/uL; Eosinophils% 1.8 % (0-5); Hematocrit 42.4 % (37-47); Hemoglobin 13.9 g/dL (12.0-15.0); Lymphocyte # 2.17 X10^3/ul (0.83-4.51); Lymphocyte % 22.3 % (19-41); Mean Corp Hgb Conc 32.8 g/dL (32-36); Mean Corpuscular Hgb 27.1 pg (27.0-32.0); Mean Corpuscular Volume 82.8 fL (81-99); Mean Platelet Vol. 8.2 fl (6.2-12.0); Monocyte# 0.51 X10^3/uL; Monocyte% 5.2 % (0-10); NRBC Flagged by Analyzer 0 % (0-5); Neutrophil # 6.74 X10^3/uL (2.7-7.7); Neutrophil % 69.2 % (47-70); Platelet Count 288 K/mm3 (150-450); RBC Distribution Width CV 14.9 % (11.6-14.6); RBC Distribution Width SD 44.5 fl (35.1-43.9); Red Blood Count 5.12 M/mm3 (4.2-5.4); White Blood Count 9.8 K/mm3 (4.4-11.0)
[2021-07-01 15:28] LABS: Anion Gap 7 (5-15); BUN 10 mg/dL (7-18); BUN/Creat Ratio 11.8 RATIO (10-20); Calcium,Total 9.8 mg/dL (8.5-10.1); Chloride 103 mmol/L (98-107); Creatinine, Serum 0.85 mg/dL (0.55-1.02); EST Glomerular Filtration Rate 74 mL/min (>60); Est Glom Filt Rate - Afr Amer 90 mL/min (>60); Estimated Creatinine Clearance 65.34 ml/min; Glucose 234 mg/dL (74-106); Potassium 4.2 mmol/L (3.5-5.1); Sodium Level 137 mmol/L (136-145)
[2021-07-01] MEDS: Acyclovir 200 MG Capsule 400 MG PO (15:40)
[2021-07-01] MEDS: predniSONE 20 MG Tablet 60 MG PO (15:40)
[2021-07-01 15:41] VITALS: BP 137/79; PULSE 86; RESP 16; O2SAT 95
[2021-07-01 16:17] VITALS: BP 154/83; PULSE 80; RESP 19; O2SAT 96
== END 2021-07-01 16:18 | disposition home or self-care (01) ==
PROVIDERS: Emergency Provider Emergency Medicine; PCP Family Medicine
DX: G51.0 Bell's palsy (principal); E11.9 Type 2 diabetes mellitus without complications; E66.9 Obesity, unspecified; Z68.41 Body mass index [BMI] 40.0-44.9, adult; Z79.84 Long term (current) use of oral hypoglycemic drugs
CPT/HCPCS: 70450; 80048; 82962; 85025; 99283; J7030; A4216